=== PATIENT | female | born 1935 | race African-American/Black ===

== ENCOUNTER 2016-12-07 14:09 | Emergency (ER) | payer MEDICARE, MEDICAID ==
[~2016-12-07] VITALS: Ht 170.2 cm; Wt 86.0 kg
[~2016-12-07 14:09] MED LIST: AMLODIPINE; BUSPIRONE; DIOVAN; FAMOTIDINE; OYSCO; [UNRECOGNIZED DRUG - OTHER]
[2016-12-07 14:18] VITALS: BP 107/60
== END 2016-12-07 15:47 | disposition home or self-care (01) ==
LOC: ER 14:48
DX: B02.9 Zoster without complications (principal)
CPT/HCPCS: 99283

== ENCOUNTER 2017-12-29 02:09 | Emergency (ER) | payer MEDICARE, MEDICAID ==
[~2017-12-29] VITALS: Ht 172.7 cm; Wt 89.0 kg
[2017-12-29] MEDS ORDERED: ONDANSETRON HCL 4MG/2ML INJ IV STA (02:41)
[2017-12-29] MEDS ORDERED: SODIUM CHLORIDE 0.9% 1,000 ML IV ONE (02:41)
[2017-12-29] MEDS ORDERED: MORPHINE SULFATE 4 MG/ML CPJ (NOT FOR IM USE) IV STA (02:41)
[2017-12-29 03:10] LABS: CHLORIDE 106 mEq/L (98-107)
[2017-12-29 03:11] LABS: PROTHROMBIN TIME 9.8 sec (9.1-11.1)
[2017-12-29 03:15] LABS: BASOPHILS % 0.8 % (0.0-2.0); EOSINOPHILS % 3.6 % (0.0-5.0); HEMATOCRIT. 40.1 % (36.0-48.0); HEMOGLOBIN. 13.2 g/dL (12.0-16.0); LYMPHOCYTES % 45.6 % (20.0-50.0); MEAN CORPUSCULAR HEMOGLOBIN 30.9 pg (28.0-32.0); MEAN PLATELET VOLUME 7.6 fl (7.4-10.4); MONOCYTES % 9.7 % (2.0-8.0); NEUTROPHILS % 40.3 % (40.0-76.0); PLATELET 216 x1000/uL (130-400); RED BLOOD CELL COUNT 4.27 mill/uL (4.2-5.4); RED CELL DISTRIBUTION WIDTH 13.7 % (11.6-14.6)
[2017-12-29 04:07] LABS: CLARITY URINE CLEAR (CLEAR); COLOR URINE YELLOW (YELLOW); KETONES URINE NEGATIVE (NEGATIVE); LEUKOCYTE ESTERASE URINE NEGATIVE (NEGATIVE); NITRITE URINE NEGATIVE (NEGATIVE); OCCULT BLOOD URINE NEGATIVE (NEGATIVE); PROTEIN URINE NEGATIVE (NEGATIVE); SPECIFIC GRAVITY URINE 1.016 (1.005-1.030); UROBILINOGEN URINE 0.2 E.U./dL (0.2-1.0)
[2017-12-29 06:17] VITALS: BP 138/78
== END 2017-12-29 06:17 | disposition home or self-care (01) ==
LOC: ER 02:09
DX: K80.50 Calculus of bile duct without cholangitis or cholecystitis without obstruction (principal); N28.1 Cyst of kidney, acquired; I10 Essential (primary) hypertension; Z88.5 Allergy status to narcotic agent; Z90.710 Acquired absence of both cervix and uterus; Z98.890 Other specified postprocedural states
CPT/HCPCS: 36415; 74176; 76705; 80053; 81003; 83605; 83690; 85025; 85610; 93005; 96374; 96375; 99285; J2270; J2405; J7030

== ENCOUNTER → 2018-02-18 | Outpatient (CLI) | payer MEDICARE, MEDICAID | END | disposition home or self-care (01) | LOC: EDBD 07:37 → MRI 07:37 | PROVIDERS: ATTEND Neurological Surgery | DX: M48.02 Spinal stenosis, cervical region (principal); M47.812 Spondylosis without myelopathy or radiculopathy, cervical region; G95.89 Other specified diseases of spinal cord | CPT/HCPCS: 72141; 73221 ==

== ENCOUNTER → 2018-02-25 | Outpatient (CLI) | payer MEDICARE, MEDICAID | END | disposition home or self-care (01) | LOC: RAD 10:28 | PROVIDERS: ATTEND Internal Medicine Nephrology | DX: S09.92XA Unspecified injury of nose, initial encounter (principal); X58.XXXA Exposure to other specified factors, initial encounter; Y93.89 Activity, other specified; Y92.89 Other specified places as the place of occurrence of the external cause; Y99.8 Other external cause status | CPT/HCPCS: 70160 ==

== ENCOUNTER 2019-03-07 11:20 | Emergency (ER) | payer MEDICAID, MEDICARE ==
[~2019-03-07] VITALS: Ht 170.2 cm; Wt 90.0 kg
[2019-03-07 15:48] LABS: BASOPHILS % 1.3 % (0.0-2.0); EOSINOPHILS % 2.5 % (0.0-5.0); HEMOGLOBIN. 14.8 g/dL (12.0-16.0); LYMPHOCYTES % 40.8 % (20.0-50.0); MEAN CORPUSCULAR HEMOGLOBIN 30.6 pg (28.0-32.0); MEAN CORPUSCULAR VOLUME 93.1 fL (81.0-99.0); MEAN PLATELET VOLUME 7.6 fl (7.4-10.4); MONOCYTES % 9.1 % (2.0-8.0); NEUTROPHILS % 46.3 % (40.0-76.0); PLATELET 220 x1000/uL (130-400); RED BLOOD CELL COUNT 4.83 mill/uL (4.2-5.4); RED CELL DISTRIBUTION WIDTH 12.9 % (11.6-14.6)
[2019-03-07 15:54] LABS: CHLORIDE 107 mEq/L (98-107); INR 0.9; PROTHROMBIN TIME 9.6 sec (9.6-11.0)
[2019-03-07] MEDS ORDERED: MORPHINE SULFATE 4 MG/ML CPJ (NOT FOR IM USE) IV STA (17:35)
[2019-03-07] MEDS ORDERED: ONDANSETRON HCL 4MG/2ML INJ IV STA (17:35)
[2019-03-07 19:55] LABS: CLARITY URINE CLEAR (CLEAR); COLOR URINE YELLOW (YELLOW); KETONES URINE NEGATIVE (NEGATIVE); LEUKOCYTE ESTERASE URINE NEGATIVE (NEGATIVE); NITRITE URINE NEGATIVE (NEGATIVE); OCCULT BLOOD URINE NEGATIVE (NEGATIVE); PROTEIN URINE NEGATIVE (NEGATIVE); UROBILINOGEN URINE 0.2 E.U./dL (0.2-1.0)
[2019-03-07] MEDS ORDERED: MORPHINE SULFATE 4 MG/ML CPJ (NOT FOR IM USE) IV ONE (21:15)
[2019-03-07] MEDS ORDERED: NA PHOS,M-B/NA PHOS,DI-BA ENEMA 118ML PR ONE (21:15)
[2019-03-07] MEDS ORDERED: IOHEXOL-300 100 ML BOTTLE ONE (23:05)
[2019-03-08 02:30] VITALS: BP 151/63
== END 2019-03-08 03:02 | disposition home or self-care (01) ==
LOC: ER 11:20
DX: K59.00 Constipation, unspecified (principal); R10.32 Left lower quadrant pain; I10 Essential (primary) hypertension; Z90.710 Acquired absence of both cervix and uterus; Z88.5 Allergy status to narcotic agent
CPT/HCPCS: 36415; 74177; 80053; 81003; 83690; 85025; 85610; 96374; 96375; 99284; J2270; J2405; Q9967

== ENCOUNTER → 2019-09-17 | Outpatient (CLI) | payer MEDICARE, MEDICAID | END | disposition home or self-care (01) | LOC: MRI 08:16 | PROVIDERS: ATTEND Neurological Surgery | DX: M47.816 Spondylosis without myelopathy or radiculopathy, lumbar region (principal); M48.061 Spinal stenosis, lumbar region without neurogenic claudication; M47.812 Spondylosis without myelopathy or radiculopathy, cervical region; M48.02 Spinal stenosis, cervical region; M54.2 Cervicalgia; M54.5 Low back pain | CPT/HCPCS: 72141; 72148 ==

== ENCOUNTER → 2019-12-04 | Outpatient (CLI) | payer MEDICARE | END | disposition home or self-care (01) | LOC: LAB 10:07 | PROVIDERS: ATTEND Neurological Surgery | DX: Z01.812 Encounter for preprocedural laboratory examination (principal); Z20.828 Contact with and (suspected) exposure to other viral communicable diseases | CPT/HCPCS: C9803; U0003 ==

== ENCOUNTER 2019-12-07 06:43 | Inpatient (IN) | payer MEDICARE, MEDICAID ==
[~2019-12-07] VITALS: Ht 165.1 cm; Wt 78.2 kg
[2019-12-07] VITALS (49 sets, daily range): BP systolic -6–141; BP diastolic -7–94
[2019-12-07] MEDS ORDERED: THROMBIN (BOVINE) 5000 UNITS/VIAL TOP ONE (07:28)
[2019-12-07] MEDS ORDERED: BACITRACIN 50,000 UNITS/VIAL ONE (07:28)
[2019-12-07] MEDS ORDERED: SODIUM CHLORIDE 0.9% INJ 10ML FLUSH IVF ONE (07:29)
[2019-12-07 08:02] LABS: BASOPHILS % 1.1 % (0.0-2.0); EOSINOPHILS % 1.8 % (0.0-5.0); HEMATOCRIT. 42.1 % (36.0-48.0); HEMOGLOBIN. 13.9 g/dL (12.0-16.0); INR 0.9; LYMPHOCYTES % 31.3 % (20.0-50.0); MEAN CORPUSCULAR HEMOGLOBIN 30.9 pg (28.0-32.0); MEAN CORPUSCULAR VOLUME 93.4 fL (81.0-99.0); MEAN PLATELET VOLUME 8.1 fl (7.4-10.4); MONOCYTES % 8.6 % (2.0-8.0); NEUTROPHILS % 57.2 % (40.0-76.0); PARTIAL THROMBOPLASTIN TIME 28.6 sec (23.4-31.0); PLATELET 224 x1000/uL (130-400); RED CELL DISTRIBUTION WIDTH 13.1 % (11.6-14.6)
[2019-12-07] MEDS ORDERED: LACTATED RINGERS 1,000 ML IV SCH (08:03)
[2019-12-07] MEDS ORDERED: PROPOFOL 200MG/20ML VIAL IV ONE (09:18)
[2019-12-07] MEDS ORDERED: NEOSTIGMINE METHYLSULFATE 1MG/ML 10 ML VIAL ONE (09:18)
[2019-12-07] MEDS ORDERED: EPHEDRINE SULFATE 50MG/ML VIAL ONE (09:18)
[2019-12-07] MEDS ORDERED: CEFAZOLIN SODIUM 1000MG/VIAL ONE (09:18)
[2019-12-07] MEDS ORDERED: FENTANYL CITRATE/PF 50MCG/ML 2ML VIAL ONE ×2 (09:18→10:17)
[2019-12-07] MEDS ORDERED: SUCCINYLCHOLINE CHLORIDE 200MG/10ML IV ONE (09:18)
[2019-12-07] MEDS ORDERED: MIDAZOLAM HCL 2 MG/2 ML VIAL ONE (09:18)
[2019-12-07] MEDS ORDERED: GLYCOPYRROLATE 0.2 MG/ML 2ML VIAL ONE (09:18)
[2019-12-07] MEDS ORDERED: ROCURONIUM BROMIDE 10MG/ML VIAL 5ML IV ONE ×2 (09:18→09:53)
[2019-12-07] MEDS ORDERED: SODIUM CHLORIDE 0.9% 10ML VIAL ONE (09:18)
[2019-12-07] MEDS ORDERED: LIDOCAINE HCL/PF 1% 10 MG/ML 5ML VIAL ONE (09:18)
[2019-12-07] MEDS ORDERED: ONDANSETRON HCL 4MG/2ML INJ ONE (09:19)
[2019-12-07] MEDS ORDERED: DEXAMETHASONE 4MG/ML 1ML VIAL ONE (09:19)
[2019-12-07] MEDS ORDERED: METOCLOPRAMIDE HCL 10MG/2ML VIAL ONE (09:19)
[2019-12-07] MEDS ORDERED: PHENYLEPHRINE HCL 10 MG/ML 1ML (IV VIAL) IV ONE (09:19)
[2019-12-07] MEDS ORDERED: ETOMIDATE 2MG/ML 10ML VIAL IV ONE (09:26)
[2019-12-07 11:03] LABS: CLARITY URINE CLEAR (CLEAR); COLOR URINE YELLOW (YELLOW); KETONES URINE NEGATIVE (NEGATIVE); LEUKOCYTE ESTERASE URINE TRACE (NEGATIVE); NITRITE URINE NEGATIVE (NEGATIVE); OCCULT BLOOD URINE NEGATIVE (NEGATIVE); PH URINE 5.5 (4.5-8.0); PROTEIN URINE NEGATIVE (NEGATIVE); SPECIFIC GRAVITY URINE 1.021 (1.005-1.030); UROBILINOGEN URINE 0.2 E.U./dL (0.2-1.0)
[2019-12-07] MEDS ORDERED: LABETALOL HCL 5MG/ML VIAL 20ML IV ONE (11:33)
[2019-12-07] MEDS: DEXT 5%/LACTATED RINGERS 1,000 ML IV SCH ×2 (12:39→22:30)
[2019-12-07] MEDS: DEXAMETHASONE 4MG/ML 1ML VIAL IV SCH ×2 (12:39→18:31)
[2019-12-07] MEDS: MORPHINE SULFATE 4 MG/ML CPJ (NOT FOR IM USE) IV PRN (12:54)
[2019-12-07] MEDS ORDERED: NALOXONE INJ IV PRN (13:15)
[2019-12-07] MEDS ORDERED: ONDANSETRON INJ IV PRN (13:15)
[2019-12-07] MEDS ORDERED: DIPHENHYDRAMINE INJ IV PRN (13:15)
[2019-12-07] MEDS: CEFAZOLIN 1000MG PREMIX 50 ML IV SCH ×2 (13:29→22:55)
[2019-12-07] MEDS: NICARDIPINE 100 MG in SODIUM CHLORIDE 0.9% 60 ML IV PRN (13:29)
[2019-12-07 13:44] LABS: BG BASE EXCESS -1.6 mmol/L (-2.0-2.0); BG CARBOXYHEMOGLOBIN 0.4 % (0.5-1.5); BG DEOXYHEMOGLOBIN 3.2 % (0.0-5.0); BG FRACTION INSPIRED OXYGEN 35; BG HCO3 ACT 24.2 mmol/L (22.0-26.0); BG METHEMOGLOBIN 0.2 % (0.0-1.5); BG OXYGEN SATURATION 96.8 % (92.0-98.5); BG OXYHEMOGLOBIN 96.2 % (94.0-97.0); BG PCO2 44.8 mmHg (35.0-45.0); BG PO2 94.2 mmHg (75.0-100.0); BG SAMPLE SITE ALINE; BG TOTAL HEMOGLOBIN 13.4 g/dL (12.0-18.0); BG VENT MODE COOL AEROSOL
[2019-12-07] MEDS ORDERED: CEFAZOLIN SODIUM 1000MG/VIAL IV SCH (14:00)
[2019-12-07] MEDS ORDERED: MORPHINE PCA 50MG/50ML IV PRN (14:30)
[2019-12-08] VITALS (87 sets, daily range): BP systolic 0–141; BP diastolic 0–104
[2019-12-08] MEDS: DEXAMETHASONE 4MG/ML 1ML VIAL IV SCH ×4 (00:13→17:17)
[2019-12-08] MEDS: NICARDIPINE 100 MG in SODIUM CHLORIDE 0.9% 60 ML IV PRN (00:25)
[2019-12-08] MEDS: CEFAZOLIN 1000MG PREMIX 50 ML IV SCH ×2 (05:16→13:59)
[2019-12-08] MEDS ORDERED: MORPHINE SULFATE 2 MG/ML CPJ (NOT FOR IM USE) IV SCH (08:00)
[2019-12-08] MEDS: DEXT 5%/LACTATED RINGERS 1,000 ML IV SCH ×2 (09:02→17:17)
[2019-12-09] MEDS: CEFAZOLIN 1000MG PREMIX 50 ML IV SCH ×3 (02:13→16:28)
[2019-12-09] MEDS: DEXT 5%/LACTATED RINGERS 1,000 ML IV SCH (05:56)
[2019-12-09] MEDS ORDERED: LORAZEPAM 2MG/ML CPJ IV PRN (07:00)
[2019-12-09 08:00] VITALS: BP 128/76
[2019-12-09 10:33] LABS: HEMATOCRIT. 39.1 % (36.0-48.0); HEMOGLOBIN. 12.9 g/dL (12.0-16.0); MEAN CORPUSCULAR HEMOGLOBIN 30.7 pg (28.0-32.0); MEAN CORPUSCULAR VOLUME 92.9 fL (81.0-99.0); MEAN PLATELET VOLUME 7.7 fl (7.4-10.4); PLATELET 217 x1000/uL (130-400); RED CELL DISTRIBUTION WIDTH 13.5 % (11.6-14.6)
[2019-12-09 12:00] VITALS: BP 134/78
[2019-12-09 16:00] VITALS: BP 140/72
[2019-12-09 17:11] LABS: PLATELET ESTIMATE NORMAL
[2019-12-09] MEDS: LORAZEPAM 2MG/ML CPJ IV PRN (20:20)
[2019-12-10] VITALS: BP 150/84
[2019-12-10] MEDS: DEXT 5%/LACTATED RINGERS 1,000 ML IV SCH ×2 (00:12→19:57)
[2019-12-10] MEDS: MORPHINE SULFATE 4 MG/ML CPJ (NOT FOR IM USE) IV PRN (01:54)
[2019-12-10 04:00] VITALS: BP 153/86
[2019-12-10] MEDS: LORAZEPAM 2MG/ML CPJ IV PRN (05:23)
[2019-12-10 08:00] VITALS: BP 156/84
[2019-12-10 12:00] VITALS: BP 156/74
[2019-12-10] MEDS ORDERED: HYDROCODONE/ACETAMINOPHEN 5/325MG TABLET PO PRN (14:00)
[2019-12-10] MEDS: AMLODIPINE 10MG TABLET PO SCH (14:04)
[2019-12-10 16:00] VITALS: BP 134/66
[2019-12-10] MEDS: TRAMADOL 50MG TABLET PO PRN (19:56)
[2019-12-11 01:43] VITALS: BP 113/64
[2019-12-11] MEDS: DEXT 5%/LACTATED RINGERS 1,000 ML IV SCH ×2 (05:25→22:06)
[2019-12-11] MEDS: LORAZEPAM 2MG/ML CPJ IV PRN (05:25)
[2019-12-11] MEDS: TRAMADOL 50MG TABLET PO PRN ×2 (06:14→09:07)
[2019-12-11 06:17] VITALS: BP 126/54
[2019-12-11 08:00] VITALS: BP 154/82
[2019-12-11] MEDS: AMLODIPINE 10MG TABLET PO SCH (09:08)
[2019-12-11] MEDS ORDERED: HYDROCODONE/ACETAMINOPHEN 5/325MG TABLET PO PRN (11:45)
[2019-12-11] MEDS: MORPHINE SULFATE 4 MG/ML CPJ (NOT FOR IM USE) IV PRN (13:20)
[2019-12-11] MEDS ORDERED: DOCU250C14 MT (15:51)
[2019-12-11] MEDS ORDERED: HYDR-4001 PO (15:51)
[2019-12-11] MEDS ORDERED: BISACODYL 10MG SUPP PR PRN (17:00)
[2019-12-11] MEDS: DOCUSATE SODIUM 100MG CAPSULE PO SCH (17:27)
[2019-12-11] MEDS: LACTULOSE 20G/30ML UDC PO SCH ×2 (17:28→22:05)
[2019-12-11] MEDS: POLYETHYLENE GLYCOL 3350 (17GM) 1 DOSE PACK PO SCH (20:30)
[2019-12-11 20:55] VITALS: BP 116/68
[2019-12-12 00:14] VITALS: BP 140/75
[2019-12-12 04:17] VITALS: BP 147/78
[2019-12-12 08:00] VITALS: BP 122/74
[2019-12-12] MEDS: AMLODIPINE 10MG TABLET PO SCH (08:35)
[2019-12-12] MEDS: DOCUSATE SODIUM 100MG CAPSULE PO SCH ×2 (08:36→17:18)
[2019-12-12 12:00] VITALS: BP 116/54
[2019-12-12 16:00] VITALS: BP 132/55
[2019-12-12] MEDS: LORAZEPAM 2MG/ML CPJ IV PRN (18:23)
[2019-12-12 20:48] VITALS: BP 105/45
[2019-12-12] MEDS: POLYETHYLENE GLYCOL 3350 (17GM) 1 DOSE PACK PO SCH (20:54)
== END 2019-12-12 21:30 | DRG 471 ==
LOC: OR 06:43 → MICUNO 06:44 → 6EST 12-08 21:45
PROVIDERS: ADMIT Neurological Surgery; ATTEND Neurological Surgery
PROC: 0RG2071 Fusion of 2 or more Cervical Vertebral Joints with Autologous Tissue Substitute, Posterior Approach, Posterior Column, Open Approach (ICD-10-PCS; principal; 2019-12-07)
PROC: 00NW0ZZ Release Cervical Spinal Cord, Open Approach (ICD-10-PCS; 2019-12-07)
PROC: 01N10ZZ Release Cervical Nerve, Open Approach (ICD-10-PCS; 2019-12-07)
PROC: 4A11X4G Monitoring of Peripheral Nervous Electrical Activity, Intraoperative, External Approach (ICD-10-PCS; 2019-12-07)
DX: M48.02 Spinal stenosis, cervical region (principal); G82.50 Quadriplegia, unspecified; G93.41 Metabolic encephalopathy; E46 Unspecified protein-calorie malnutrition; N17.9 Acute kidney failure, unspecified; M47.12 Other spondylosis with myelopathy, cervical region; M47.22 Other spondylosis with radiculopathy, cervical region; E87.8 Other disorders of electrolyte and fluid balance, not elsewhere classified; M19.90 Unspecified osteoarthritis, unspecified site; E78.5 Hyperlipidemia, unspecified; I12.9 Hypertensive chronic kidney disease with stage 1 through stage 4 chronic kidney disease, or unspecified chronic kidney disease; N18.9 Chronic kidney disease, unspecified; J44.9 Chronic obstructive pulmonary disease, unspecified; K21.9 Gastro-esophageal reflux disease without esophagitis; D72.829 Elevated white blood cell count, unspecified; R26.9 Unspecified abnormalities of gait and mobility; R13.10 Dysphagia, unspecified; Z82.49 Family history of ischemic heart disease and other diseases of the circulatory system; Z87.891 Personal history of nicotine dependence; Z68.28 Body mass index [BMI] 28.0-28.9, adult; Z88.8 Allergy status to other drugs, medicaments and biological substances; Z56.0 Unemployment, unspecified; Z78.1 Physical restraint status
CPT/HCPCS: 36415; 36600; 71045; 72040; 72141; 76000; 80048; 81003; 82040; 82375; 82805; 84134; 85025; 86850; 86900; 92523; 92610; 93005; 95863; 95925; 95926; 95928; 95929; 95940; 97110; 97116; 97162; 97166; 97530; 97535; A6261; C1713; C1893; C9803; J0330; J0690; J1100; J2060; J2250; J2270; J2370; J2405; J2704; J2710; J2765; J3010; J3490; J7050; J7121; L0172; U0003

== ENCOUNTER → 2020-02-16 | Outpatient (CLI) | payer MEDICARE, MEDICAID ==
[~2020-02-16] MED LIST changes: -AMLODIPINE; -BUSPIRONE; -DIOVAN; +DOCU250C14 MT; -FAMOTIDINE; -OYSCO; -[UNRECOGNIZED DRUG - OTHER]
== END | disposition home or self-care (01) ==
LOC: RAD 09:27
PROVIDERS: ATTEND Neurological Surgery
DX: M43.22 Fusion of spine, cervical region (principal)
CPT/HCPCS: 72052

== ENCOUNTER 2020-07-15 09:57 | Emergency (ER) | payer MEDICAID, MEDICARE ==
[~2020-07-15] VITALS: Ht 162.6 cm; Wt 75.0 kg
[2020-07-15] MEDS ORDERED: [UNRECOGNIZED DRUG - CODE] OP (11:18)
[2020-07-15 11:39] VITALS: BP 118/70
== END 2020-07-15 11:40 | disposition home or self-care (01) ==
LOC: ER 09:57
DX: H57.13 Ocular pain, bilateral (principal); E78.00 Pure hypercholesterolemia, unspecified; I10 Essential (primary) hypertension; Z88.9 Allergy status to unspecified drugs, medicaments and biological substances
CPT/HCPCS: 99281; 99283

== ENCOUNTER 2020-10-18 21:02 | Inpatient (IN) | payer MEDICARE, MEDICAID ==
[~2020-10-18] VITALS: Ht 170.2 cm; Wt 78.0 kg
[~2020-10-18 21:02] MED LIST changes: +CEPH500C2 MT; +MAGN296S70 MT; +[UNRECOGNIZED DRUG - CODE] OP
[2020-10-18] MEDS ORDERED: ONDANSETRON HCL 4MG/2ML INJ IV STA (23:56)
[2020-10-18] MEDS ORDERED: SULFACETAMIDE SODIUM 10% OPHTH DROPS 15ML BOTHEYE STA (23:59)
[2020-10-19] MEDS ORDERED: FLUORESCEIN SODIUM 1MG/STRIP BOTHEYE ONE
[2020-10-19] MEDS ORDERED: TETRACAINE 0.5% OPHTH DROPS 4ML BOTHEYE ONE
[2020-10-19] MEDS ORDERED: SODIUM CHLORIDE 0.9% 1,000 ML IV ONE
[2020-10-19] MEDS ORDERED: KETOROLAC 15MG/ML VIAL IV ONE
[2020-10-19 01:32] LABS: BASOPHILS % 0.7 % (0.0-2.0); EOSINOPHILS % 1.2 % (0.0-5.0); HEMATOCRIT. 44.9 % (36.0-48.0); HEMOGLOBIN. 15.1 g/dL (12.0-16.0); LYMPHOCYTES % 32.9 % (20.0-50.0); MEAN CORPUSCULAR HEMOGLOBIN 30.7 pg (28.0-32.0); MEAN CORPUSCULAR VOLUME 91.2 fL (81.0-99.0); MEAN PLATELET VOLUME 7.8 fl (7.4-10.4); MONOCYTES % 11.1 % (2.0-8.0); NEUTROPHILS % 54.1 % (40.0-76.0); PLATELET 207 x1000/uL (130-400); RED BLOOD CELL COUNT 4.92 mill/uL (4.2-5.4); RED CELL DISTRIBUTION WIDTH 13.2 % (11.6-14.6)
[2020-10-19 01:36] LABS: CLARITY URINE CLEAR (CLEAR); COLOR URINE YELLOW (YELLOW); KETONES URINE TRACE (NEGATIVE); LEUKOCYTE ESTERASE URINE 3+ (NEGATIVE); NITRITE URINE NEGATIVE (NEGATIVE); OCCULT BLOOD URINE TRACE (NEGATIVE); PROTEIN URINE NEGATIVE (NEGATIVE); SPECIFIC GRAVITY URINE 1.012 (1.005-1.030); UROBILINOGEN URINE 0.2 E.U./dL (0.2-1.0)
[2020-10-19 01:48] LABS: CHLORIDE 105 mEq/L (98-107)
[2020-10-19] MEDS ORDERED: CEFTRIAXONE 1 G PREMIX 50 ML IV ONE (02:15)
[2020-10-19 02:55] LABS: PARTIAL THROMBOPLASTIN TIME 26.9 sec (23.4-31.0); PROTHROMBIN TIME 10.8 sec (9.6-11.0)
[2020-10-19] MEDS ORDERED: CEFTRIAXONE 1 G PREMIX 50 ML IV SCH (10:00)
[2020-10-19] MEDS ORDERED: ACETAMINOPHEN 325MG TABLET PO PRN (10:00)
[2020-10-19] MEDS ORDERED: ONDANSETRON HCL 4MG/2ML INJ IV PRN (10:00)
[2020-10-19] MEDS: POLYVINYL ALCOHOL OPHTH DROPS 15ML EACHEYE SCH ×2 (12:58→19:37)
[2020-10-19] MEDS: TOBRAMYCIN/DEXAMETH 0.1/0.3% OPHTH SUSP 2.5ML BOTHEYE SCH ×2 (16:07→20:54)
[2020-10-19] MEDS ORDERED: MAGNESIUM HYDROXIDE 400MG/5ML 30ML UDC PO PRN (16:45)
[2020-10-19] MEDS: DOCUSATE SODIUM 100MG CAPSULE PO SCH (20:53)
[2020-10-19] MEDS ORDERED: CEFTRIAXONE 1,000 MG in DEXTROSE 5% WATER 50 ML IV SCH (21:00)
[2020-10-19 22:45] VITALS: BP 146/85
[2020-10-19 23:00] VITALS: BP 146/85
[2020-10-20] VITALS: BP_SYST 122; BP_SYST 146; BP_DIAS 78; BP_DIAS 85
[2020-10-20] MEDS: POLYVINYL ALCOHOL OPHTH DROPS 15ML EACHEYE SCH ×3 (00:51→11:00)
[2020-10-20] MEDS: TOBRAMYCIN/DEXAMETH 0.1/0.3% OPHTH SUSP 2.5ML BOTHEYE SCH ×4 (00:52→11:00)
[2020-10-20 04:00] VITALS: BP 148/78
[2020-10-20 07:50] VITALS: BP 135/72
[2020-10-20] MEDS: DOCUSATE SODIUM 100MG CAPSULE PO SCH (08:14)
[2020-10-20 11:50] VITALS: BP 131/67
[2020-10-20] MEDS ORDERED: MOM PO (14:04)
[2020-10-20] MEDS ORDERED: DOCU250C69 MT (14:04)
[2020-10-20 14:51] VITALS: BP 131/67
== END 2020-10-20 16:55 | disposition home or self-care (01) | DRG 689 ==
LOC: ER 21:02 → MICUSO 10-19 02:32 → 7EST 10-19 20:33
PROVIDERS: ADMIT Internal Medicine; ATTEND Internal Medicine
DX: N39.0 Urinary tract infection, site not specified (principal); N17.0 Acute kidney failure with tubular necrosis; I10 Essential (primary) hypertension; J44.9 Chronic obstructive pulmonary disease, unspecified; K59.00 Constipation, unspecified; Z20.822 Contact with and (suspected) exposure to COVID-19; M19.90 Unspecified osteoarthritis, unspecified site; Z90.710 Acquired absence of both cervix and uterus; Z88.8 Allergy status to other drugs, medicaments and biological substances; Z79.899 Other long term (current) drug therapy
CPT/HCPCS: 36415; 71045; 74176; 80053; 81003; 83880; 84484; 85025; 87426; 93005; 99285; J0696; J1885; J2405; J7030; J7060

== ENCOUNTER 2020-11-13 08:57 | Emergency (ER) | payer MEDICARE, MEDICAID ==
[~2020-11-13] VITALS: Ht 170.2 cm; Wt 76.0 kg
[~2020-11-13 08:57] MED LIST changes: -CEPH500C2 MT; +DOCU250C69 MT; +MOM PO
[2020-11-13 10:30] LABS: BASOPHILS % 0.7 % (0.0-2.0); EOSINOPHILS % 1.9 % (0.0-5.0); HEMOGLOBIN. 12.7 g/dL (12.0-16.0); LYMPHOCYTES % 31.4 % (20.0-50.0); MEAN CORPUSCULAR HEMOGLOBIN 30.6 pg (28.0-32.0); MEAN PLATELET VOLUME 8.1 fl (7.4-10.4); MONOCYTES % 11.8 % (2.0-8.0); NEUTROPHILS % 54.2 % (40.0-76.0); PLATELET 219 x1000/uL (130-400); RED BLOOD CELL COUNT 4.13 mill/uL (4.2-5.4); RED CELL DISTRIBUTION WIDTH 13.1 % (11.6-14.6)
[2020-11-13 10:36] LABS: CHLORIDE 109 mEq/L (98-107)
[2020-11-13] MEDS ORDERED: GUAIFENESIN 600MG ER TABLET PO STA (10:42)
[2020-11-13 11:34] LABS: CLARITY URINE CLEAR (CLEAR); COLOR URINE YELLOW (YELLOW); KETONES URINE NEGATIVE (NEGATIVE); LEUKOCYTE ESTERASE URINE 2+ (NEGATIVE); NITRITE URINE NEGATIVE (NEGATIVE); OCCULT BLOOD URINE NEGATIVE (NEGATIVE); PROTEIN URINE NEGATIVE (NEGATIVE)
[2020-11-13] MEDS ORDERED: CEFTRIAXONE 1 G PREMIX 50 ML IV ONE (12:15)
[2020-11-13 14:00] VITALS: BP 148/81
[2020-11-13] MEDS ORDERED: CEPH250C2 MT (14:00)
[2020-11-13] MEDS ORDERED: GUAI600T26 MT (14:00)
== END 2020-11-13 14:17 | disposition home or self-care (01) ==
LOC: ER 08:57
DX: R05.9 Cough, unspecified (principal); N39.0 Urinary tract infection, site not specified; I10 Essential (primary) hypertension; Z79.899 Other long term (current) drug therapy
CPT/HCPCS: 36415; 71045; 80053; 81003; 83605; 83880; 84145; 84484; 85025; 87040; 93005; 96365; 99285; J0696

== ENCOUNTER 2020-12-24 15:38 | Emergency (ER) | payer MEDICARE ==
[~2020-12-24] VITALS: Ht 170.2 cm; Wt 73.0 kg
[~2020-12-24 15:38] MED LIST changes: +CEPH250C2 MT; +GUAI600T26 MT
[2020-12-24 16:04] VITALS: BP 103/62
[2020-12-24 21:38] LABS: BASOPHILS % 0.5 % (0.0-2.0); EOSINOPHILS % 1.5 % (0.0-5.0); HEMATOCRIT. 40.8 % (36.0-48.0); HEMOGLOBIN. 13.4 g/dL (12.0-16.0); LYMPHOCYTES % 34.2 % (20.0-50.0); MEAN CORPUSCULAR HEMOGLOBIN 29.9 pg (28.0-32.0); MEAN CORPUSCULAR VOLUME 91.4 fL (81.0-99.0); MEAN PLATELET VOLUME 7.4 fl (7.4-10.4); MONOCYTES % 11.9 % (2.0-8.0); NEUTROPHILS % 51.9 % (40.0-76.0); PLATELET 236 x1000/uL (130-400); RED BLOOD CELL COUNT 4.46 mill/uL (4.2-5.4); RED CELL DISTRIBUTION WIDTH 13.2 % (11.6-14.6)
[2020-12-24 21:46] LABS: CHLORIDE 107 mEq/L (98-107)
[2020-12-24] MEDS ORDERED: ACETAMINOPHEN 325MG TABLET PO ONE (22:45)
[2020-12-24 23:58] LABS: CLARITY URINE CLEAR (CLEAR); COLOR URINE YELLOW (YELLOW); KETONES URINE NEGATIVE (NEGATIVE); LEUKOCYTE ESTERASE URINE 1+ (NEGATIVE); NITRITE URINE NEGATIVE (NEGATIVE); OCCULT BLOOD URINE NEGATIVE (NEGATIVE); PROTEIN URINE NEGATIVE (NEGATIVE); SPECIFIC GRAVITY URINE 1.018 (1.005-1.030); UROBILINOGEN URINE 0.2 E.U./dL (0.2-1.0)
== END 2020-12-24 23:20 | disposition home or self-care (01) ==
LOC: ER 15:38
DX: K59.00 Constipation, unspecified (principal); E86.0 Dehydration; I10 Essential (primary) hypertension; Z98.1 Arthrodesis status; Z90.710 Acquired absence of both cervix and uterus; Z88.5 Allergy status to narcotic agent
CPT/HCPCS: 36415; 74018; 80053; 81003; 85025; 99285

== ENCOUNTER → 2021-01-04 | Outpatient (CLI) | payer MEDICARE, MEDICAID | END | disposition home or self-care (01) | LOC: CARD 08:47 | PROVIDERS: ATTEND Internal Medicine | DX: I08.3 Combined rheumatic disorders of mitral, aortic and tricuspid valves (principal); R06.02 Shortness of breath | CPT/HCPCS: 93306 ==

== ENCOUNTER 2021-03-05 20:57 | Emergency (ER) | payer MEDICAID, MEDICARE ==
[~2021-03-05] VITALS: Ht 167.6 cm; Wt 75.0 kg
[~2021-03-05 20:57] MED LIST changes: +ASPI-1406 PO; +ATOR20TA65 PO
[2021-03-05] MEDS ORDERED: DICYCLOMINE 10 MG/5 ML ORAL SYR PO STA (21:52)
[2021-03-05] MEDS ORDERED: IBUPROFEN 600MG TABLET PO ONE (22:30)
[2021-03-05 23:16] LABS: EOSINOPHILS % 1.8 % (0.0-5.0); HEMOGLOBIN. 13.2 g/dL (12.0-16.0); LYMPHOCYTES % 24.8 % (20.0-50.0); MEAN CORPUSCULAR HEMOGLOBIN 29.7 pg (28.0-32.0); MEAN CORPUSCULAR VOLUME 92.3 fL (81.0-99.0); MEAN PLATELET VOLUME 7.5 fl (7.4-10.4); MONOCYTES % 11.8 % (2.0-8.0); NEUTROPHILS % 60.6 % (40.0-76.0); PLATELET 239 x1000/uL (130-400); RED BLOOD CELL COUNT 4.44 mill/uL (4.2-5.4); RED CELL DISTRIBUTION WIDTH 13.1 % (11.6-14.6)
[2021-03-05 23:20] LABS: CHLORIDE 109 mEq/L (98-107)
[2021-03-06 01:29] LABS: CLARITY URINE CLEAR (CLEAR); COLOR URINE YELLOW (YELLOW); KETONES URINE TRACE (NEGATIVE); LEUKOCYTE ESTERASE URINE TRACE (NEGATIVE); NITRITE URINE NEGATIVE (NEGATIVE); OCCULT BLOOD URINE NEGATIVE (NEGATIVE); PROTEIN URINE NEGATIVE (NEGATIVE); UROBILINOGEN URINE 0.2 E.U./dL (0.2-1.0)
[2021-03-06] MEDS ORDERED: METF-873 MT (01:57)
[2021-03-06] MEDS ORDERED: CEPH500C2 MT (01:57)
[2021-03-06] MEDS ORDERED: CEPHALEXIN 250MG CAPSULE PO ONE (02:00)
[2021-03-06 02:15] VITALS: BP 136/59
== END 2021-03-06 02:27 | disposition home or self-care (01) ==
LOC: ER 20:57
DX: N39.0 Urinary tract infection, site not specified (principal); K59.00 Constipation, unspecified; M16.11 Unilateral primary osteoarthritis, right hip; M17.5 Other unilateral secondary osteoarthritis of knee; M11.261 Other chondrocalcinosis, right knee
CPT/HCPCS: 36415; 72170; 73560; 74018; 80053; 81003; 85025; 93005; 99285

== ENCOUNTER 2021-04-05 17:05 | Inpatient (IN) | payer MEDICARE, MEDICAID ==
[~2021-04-05] VITALS: Ht 170.2 cm; Wt 72.6 kg
[~2021-04-05 17:05] MED LIST changes: +CEPH500C2 MT
[2021-04-05] MEDS ORDERED: MORPHINE SULFATE 2 MG/ML CPJ (NOT FOR IM USE) IV ONE ×2 (18:30→21:00)
[2021-04-05 18:35] LABS: BASOPHILS % 0.6 % (0.0-2.0); EOSINOPHILS % 0.1 % (0.0-5.0); HEMOGLOBIN. 14.3 g/dL (12.0-16.0); LYMPHOCYTES % 11.1 % (20.0-50.0); MEAN CORPUSCULAR HEMOGLOBIN 29.9 pg (28.0-32.0); MEAN CORPUSCULAR VOLUME 91.6 fL (81.0-99.0); MEAN PLATELET VOLUME 7.6 fl (7.4-10.4); MONOCYTES % 8.2 % (2.0-8.0); PLATELET 240 x1000/uL (130-400); RED CELL DISTRIBUTION WIDTH 13.2 % (11.6-14.6)
[2021-04-05 18:39] LABS: CHLORIDE 105 mEq/L (98-107)
[2021-04-05] MEDS ORDERED: SODIUM CHLORIDE 0.9% 500 ML IV ONE (19:30)
[2021-04-05 20:28] LABS: CLARITY URINE CLOUDY (CLEAR); COLOR URINE YELLOW (YELLOW); KETONES URINE NEGATIVE (NEGATIVE); LEUKOCYTE ESTERASE URINE 3+ (NEGATIVE); NITRITE URINE NEGATIVE (NEGATIVE); OCCULT BLOOD URINE 3+ (NEGATIVE); PROTEIN URINE TRACE (NEGATIVE); SPECIFIC GRAVITY URINE 1.013 (1.005-1.030); UROBILINOGEN URINE 0.2 E.U./dL (0.2-1.0)
[2021-04-05] MEDS ORDERED: ACETAMINOPHEN 325MG TABLET PO ONE (21:00)
[2021-04-05] MEDS ORDERED: BISACODYL 10MG SUPP PR ONE (21:00)
[2021-04-05] MEDS ORDERED: NITROGLYCERIN 0.4MG TABLET SL SL PRN (22:00)
[2021-04-05] MEDS ORDERED: CLONIDINE 0.1MG TABLET PO PRN (22:00)
[2021-04-05] MEDS ORDERED: ZOLPIDEM TARTRATE 5MG TABLET PO PRN (22:00)
[2021-04-05] MEDS ORDERED: NA PHOS,M-B/NA PHOS,DI-BA ENEMA 118ML PR NR (22:00)
[2021-04-05] MEDS ORDERED: ACETAMINOPHEN 325MG TABLET PO PRN ×2 (22:00)
[2021-04-05] MEDS ORDERED: ONDANSETRON HCL 4MG/2ML INJ IV PRN (22:00)
[2021-04-05] MEDS ORDERED: IPRATROPIUM/ALBUTEROL 0.5-3(2.5)MG/3ML NEB NEB PRN (22:00)
[2021-04-05] MEDS ORDERED: DOCUSATE SODIUM 100MG CAPSULE PO PRN (22:00)
[2021-04-05] MEDS ORDERED: MAGNESIUM/ALUMINUM HYDROXIDE/SIMETHICONE 30ML UDC PO PRN (22:00)
[2021-04-05] MEDS ORDERED: GUAIFENESIN 200MG/10ML SUGAR FREE UDC PO PRN (22:00)
[2021-04-05] MEDS ORDERED: PIPERACILLIN/TAZ 3.375G PREMIX 50 ML IV NR (22:19)
[2021-04-05 22:45] LABS: FOLIC ACID (FOLATE) SERUM 9.2 ng/mL (>5.38)
[2021-04-05] MEDS: KETOROLAC 15MG/ML VIAL IV PRN (23:22)
[2021-04-06 05:35] VITALS: BP 117/52
[2021-04-06] MEDS ORDERED: PIPERACILLIN/TAZOBACTAM 3.375 G in DEXTROSE 5% WATER 50 ML IV SCH (06:00)
[2021-04-06 08:00] VITALS: BP 123/58
[2021-04-06] MEDS: ENOXAPARIN 40MG/0.4ML SYR SUBCUT SCH (08:24)
[2021-04-06] MEDS: PANTOPRAZOLE SODIUM 40 MG/VIAL IV SCH (08:24)
[2021-04-06] MEDS: KETOROLAC 15MG/ML VIAL IV PRN ×2 (08:30→15:28)
[2021-04-06] MEDS: PIPERACILLIN/TAZOBACTAM 3.375 G in DEXTROSE 5% WATER 50 ML IV SCH ×3 (10:01→20:49)
[2021-04-06 12:00] VITALS: BP 114/56
[2021-04-06] MEDS: TRAMADOL 50MG TABLET PO PRN (12:37)
[2021-04-06 13:17] LABS: BASOPHILS % 0.3 % (0.0-2.0); EOSINOPHILS % 0.3 % (0.0-5.0); HEMATOCRIT. 36.2 % (36.0-48.0); MEAN CORPUSCULAR VOLUME 90.2 fL (81.0-99.0); MEAN PLATELET VOLUME 7.7 fl (7.4-10.4); MONOCYTES % 10.4 % (2.0-8.0); PLATELET 195 x1000/uL (130-400); RED BLOOD CELL COUNT 4.01 mill/uL (4.2-5.4); RED CELL DISTRIBUTION WIDTH 13.1 % (11.6-14.6)
[2021-04-06 13:24] LABS: CHLORIDE 109 mEq/L (98-107)
[2021-04-06 13:30] LABS: PHOSPHORUS 3.2 mg/dL (2.5-4.9)
[2021-04-06] MEDS ORDERED: ASPI-986 MT (15:54)
[2021-04-06] MEDS ORDERED: DOCU-286 MT (15:54)
[2021-04-06 16:00] VITALS: BP 110/59
[2021-04-06 16:05] VITALS: BP 123/58
[2021-04-06 20:00] VITALS: BP 92/50
[2021-04-07] VITALS: BP_SYST 115; BP_SYST 138; BP_DIAS 57; BP_DIAS 61
[2021-04-07 04:00] VITALS: BP 138/57
[2021-04-07] MEDS: PIPERACILLIN/TAZOBACTAM 3.375 G in DEXTROSE 5% WATER 50 ML IV SCH ×2 (05:22→13:58)
[2021-04-07] MEDS: TRAMADOL 50MG TABLET PO PRN ×2 (05:23→13:58)
[2021-04-07 08:00] VITALS: BP 111/54
[2021-04-07] MEDS: PANTOPRAZOLE SODIUM 40 MG/VIAL IV SCH (08:40)
[2021-04-07] MEDS: ENOXAPARIN 40MG/0.4ML SYR SUBCUT SCH (08:40)
[2021-04-07] MEDS: KETOROLAC 15MG/ML VIAL IV PRN ×2 (08:41→16:36)
[2021-04-07 12:00] VITALS: BP 98/58
[2021-04-07] MEDS: METHYL SALICYLATE/MENTHOL CREAM 85GM TOP SCH ×2 (13:00→16:29)
[2021-04-07] MEDS: LIDOCAINE 5% PATCH TOP SCH (13:59)
[2021-04-07 16:00] VITALS: BP 155/62
[2021-04-07] MEDS: PHENYLEPH/PRAMOXIN/GLYCR/PET RECTAL CREAM 26GM PR SCH (16:30)
[2021-04-07] MEDS ORDERED: PHENYLEPHRINE/SHK LV/MO/PET RECTAL OINTMENT 57GM PR SCH (17:00)
[2021-04-07] MEDS ORDERED: NALOXONE HCL 0.4MG/ML VIAL IV PRN (18:00)
[2021-04-07 20:00] VITALS: BP 102/51
[2021-04-08] VITALS: BP 120/57
[2021-04-08 04:00] VITALS: BP 101/53
[2021-04-08] MEDS: PIPERACILLIN/TAZOBACTAM 3.375 G in DEXTROSE 5% WATER 50 ML IV SCH ×3 (06:27→15:11)
[2021-04-08] MEDS: METHYL SALICYLATE/MENTHOL CREAM 85GM TOP SCH ×2 (06:29→12:22)
[2021-04-08 08:00] VITALS: BP 109/58
[2021-04-08] MEDS: PANTOPRAZOLE SODIUM 40 MG/VIAL IV SCH (08:13)
[2021-04-08] MEDS: PHENYLEPH/PRAMOXIN/GLYCR/PET RECTAL CREAM 26GM PR SCH (08:13)
[2021-04-08] MEDS: LIDOCAINE 5% PATCH TOP SCH (08:15)
[2021-04-08] MEDS: TRAMADOL 50MG TABLET PO PRN ×2 (08:59→15:11)
[2021-04-08] MEDS ORDERED: ENOXAPARIN 30MG/0.3ML SYR SUBCUT SCH (09:00)
[2021-04-08 12:00] VITALS: BP 148/67
[2021-04-08 16:17] VITALS: BP 148/67
[2021-04-09] MEDS ORDERED: AMLO10TA80 PO (02:30)
[2021-04-09] MEDS ORDERED: LINA72CA PO (02:30)
[2021-04-09] MEDS ORDERED: FAMO40TA7 PO (02:30)
[2021-04-09] MEDS ORDERED: IBUP-2028 PO (02:30)
== END 2021-04-08 16:44 | DRG 690 ==
LOC: ER 17:11 → MICUSO 21:46 → SUPCPDRO 21:48 → 6EST 23:24
PROVIDERS: ADMIT Internal Medicine; ATTEND Internal Medicine
DX: N39.0 Urinary tract infection, site not specified (principal); K57.32 Diverticulitis of large intestine without perforation or abscess without bleeding; E87.1 Hypo-osmolality and hyponatremia; E87.5 Hyperkalemia; E88.09 Other disorders of plasma-protein metabolism, not elsewhere classified; I10 Essential (primary) hypertension; Z90.710 Acquired absence of both cervix and uterus; E78.00 Pure hypercholesterolemia, unspecified; E78.5 Hyperlipidemia, unspecified; J44.9 Chronic obstructive pulmonary disease, unspecified; G89.29 Other chronic pain; K59.09 Other constipation; R53.81 Other malaise; M16.9 Osteoarthritis of hip, unspecified; E66.01 Morbid (severe) obesity due to excess calories; M17.10 Unilateral primary osteoarthritis, unspecified knee; Z20.822 Contact with and (suspected) exposure to COVID-19; Z82.0 Family history of epilepsy and other diseases of the nervous system; Z82.49 Family history of ischemic heart disease and other diseases of the circulatory system; Z87.891 Personal history of nicotine dependence; Z98.1 Arthrodesis status; Z88.8 Allergy status to other drugs, medicaments and biological substances; Z79.82 Long term (current) use of aspirin; Z79.899 Other long term (current) drug therapy; Z71.3 Dietary counseling and surveillance; Z68.25 Body mass index [BMI] 25.0-25.9, adult
CPT/HCPCS: 36415; 74176; 80053; 81003; 82607; 82746; 83540; 83550; 83605; 83735; 84100; 84145; 84443; 85025; 87426; 93970; 97162; 97166; 97535; 99285; C9113; J1650; J1885; J2270; J2543; J7040; J7060

== ENCOUNTER 2021-04-08 16:50 | Inpatient (IN) | payer MEDICARE, MEDICAID ==
[~2021-04-08] VITALS: Ht 170.2 cm; Wt 72.3 kg
[~2021-04-08 16:50] MED LIST changes: +ASPI-986 MT; +DOCU-286 MT
[2021-04-08 18:00] VITALS: BP 128/58
[2021-04-08] MEDS ORDERED: CLONIDINE 0.1MG TABLET PO PRN (19:15)
[2021-04-08] MEDS ORDERED: ZOLPIDEM TARTRATE 5MG TABLET PO PRN (19:15)
[2021-04-08] MEDS ORDERED: ACETAMINOPHEN 325MG TABLET PO PRN (19:15)
[2021-04-08] MEDS ORDERED: TRAMADOL 50MG TABLET PO PRN (19:15)
[2021-04-08] MEDS ORDERED: KETOROLAC 15MG/ML VIAL IV PRN (19:15)
[2021-04-08] MEDS ORDERED: MAGNESIUM/ALUMINUM HYDROXIDE/SIMETHICONE 30ML UDC PO PRN (19:15)
[2021-04-08] MEDS ORDERED: GUAIFENESIN 200MG/10ML SUGAR FREE UDC PO PRN (19:15)
[2021-04-08] MEDS ORDERED: NALOXONE HCL 0.4 MG/ML 1ML VIAL IV PRN (19:15)
[2021-04-08] MEDS ORDERED: NITROGLYCERIN 0.4MG TABLET SL SL PRN (19:15)
[2021-04-08] MEDS ORDERED: ONDANSETRON HCL 4MG/2ML INJ IV PRN (19:15)
[2021-04-08] MEDS ORDERED: IPRATROPIUM/ALBUTEROL 0.5-3(2.5)MG/3ML NEB HHN PRN (19:15)
[2021-04-08] MEDS ORDERED: KETOROLAC 30MG/ML VIAL IV PRN (19:45)
[2021-04-08 20:00] VITALS: BP 124/70
[2021-04-08] MEDS: PHENYLEPH/PRAMOXIN/GLYCR/PET RECTAL CREAM 26GM PR SCH (21:12)
[2021-04-08] MEDS: METHYL SALICYLATE/MENTHOL CREAM 85GM TOP SCH (21:12)
[2021-04-08] MEDS: PIPERACILLIN/TAZOBACTAM 3.375 G in DEXTROSE 5% WATER 50 ML IV SCH (21:12)
[2021-04-09] MEDS: METHYL SALICYLATE/MENTHOL CREAM 85GM TOP SCH ×4 (00:25→17:56)
[2021-04-09] MEDS ORDERED: AMLO10TA80 PO (02:30)
[2021-04-09] MEDS ORDERED: IBUP-2028 PO (02:30)
[2021-04-09] MEDS ORDERED: LINA72CA PO (02:30)
[2021-04-09] MEDS ORDERED: FAMO40TA7 PO (02:30)
[2021-04-09] MEDS: PIPERACILLIN/TAZOBACTAM 3.375 G in DEXTROSE 5% WATER 50 ML IV SCH ×3 (05:04→21:04)
[2021-04-09 08:00] VITALS: BP 132/62
[2021-04-09 08:01] LABS: CLARITY URINE CLEAR (CLEAR); COLOR URINE YELLOW (YELLOW); KETONES URINE NEGATIVE (NEGATIVE); LEUKOCYTE ESTERASE URINE NEGATIVE (NEGATIVE); NITRITE URINE NEGATIVE (NEGATIVE); OCCULT BLOOD URINE NEGATIVE (NEGATIVE); PROTEIN URINE NEGATIVE (NEGATIVE); UROBILINOGEN URINE 0.2 E.U./dL (0.2-1.0)
[2021-04-09 08:09] LABS: HEMOGLOBIN. 11.9 g/dL (12.0-16.0); MEAN CORPUSCULAR HEMOGLOBIN 30.2 pg (28.0-32.0); MEAN CORPUSCULAR VOLUME 91.4 fL (81.0-99.0); MEAN PLATELET VOLUME 7.9 fl (7.4-10.4); PLATELET 189 x1000/uL (130-400); RED BLOOD CELL COUNT 3.94 mill/uL (4.2-5.4); RED CELL DISTRIBUTION WIDTH 13.1 % (11.6-14.6)
[2021-04-09 08:48] LABS: CHLORIDE 110 mEq/L (98-107)
[2021-04-09] MEDS ORDERED: PHENYLEPH/PRAMOXIN/GLYCR/PET RECTAL CREAM 26GM PR SCH (09:00)
[2021-04-09] MEDS: PANTOPRAZOLE SODIUM 40 MG/VIAL IV SCH (09:00)
[2021-04-09] MEDS: ENOXAPARIN 30MG/0.3ML SYR SUBCUT SCH (09:43)
[2021-04-09] MEDS: PHENYLEPH/PRAMOXIN/GLYCR/PET RECTAL CREAM 26GM PR SCH ×2 (09:43→17:55)
[2021-04-09] MEDS: LIDOCAINE 5% PATCH TOP SCH (09:43)
[2021-04-09 20:00] VITALS: BP 112/61
[2021-04-09] MEDS: DOCUSATE SODIUM 100MG CAPSULE PO PRN (21:04)
[2021-04-09 23:56] LABS: PLATELET ESTIMATE NORMAL
[2021-04-10] MEDS: METHYL SALICYLATE/MENTHOL CREAM 85GM TOP SCH ×4 (00:49→19:06)
[2021-04-10] MEDS: PIPERACILLIN/TAZOBACTAM 3.375 G in DEXTROSE 5% WATER 50 ML IV SCH (05:07)
[2021-04-10 07:20] LABS: BASOPHILS % 0.8 % (0.0-2.0); EOSINOPHILS % 3.1 % (0.0-5.0); HEMATOCRIT. 40.4 % (36.0-48.0); LYMPHOCYTES % 31.6 % (20.0-50.0); MEAN CORPUSCULAR HEMOGLOBIN 29.5 pg (28.0-32.0); MEAN CORPUSCULAR VOLUME 91.6 fL (81.0-99.0); MEAN PLATELET VOLUME 7.9 fl (7.4-10.4); MONOCYTES % 12.1 % (2.0-8.0); NEUTROPHILS % 52.4 % (40.0-76.0); PLATELET 222 x1000/uL (130-400); RED BLOOD CELL COUNT 4.41 mill/uL (4.2-5.4); RED CELL DISTRIBUTION WIDTH 12.8 % (11.6-14.6)
[2021-04-10 07:37] VITALS: BP 119/50
[2021-04-10 07:42] LABS: FOLIC ACID (FOLATE) SERUM 12.8 ng/mL (>5.38)
[2021-04-10] MEDS: PANTOPRAZOLE SODIUM 40 MG/VIAL IV SCH (09:00)
[2021-04-10] MEDS: ENOXAPARIN 30MG/0.3ML SYR SUBCUT SCH (09:18)
[2021-04-10] MEDS: PHENYLEPH/PRAMOXIN/GLYCR/PET RECTAL CREAM 26GM PR SCH ×2 (09:20→17:33)
[2021-04-10] MEDS: LIDOCAINE 5% PATCH TOP SCH (09:20)
[2021-04-10] MEDS ORDERED: CYANOCOBALAMIN 1000MCG/ML VIAL IM SCH (12:00)
[2021-04-10] MEDS ORDERED: LEVOFLOXACIN 500MG TABLET PO NR (15:00)
[2021-04-10] MEDS: METRONIDAZOLE 500MG TABLET PO SCH ×2 (15:20→21:15)
[2021-04-10] MEDS ORDERED: BISACODYL 10MG SUPP PR SCH (17:00)
[2021-04-10] MEDS: LACTULOSE 20G/30ML UDC PO SCH (19:06)
[2021-04-10 20:00] VITALS: BP 129/89
[2021-04-10] MEDS: HYDROCORTISONE ACETATE 25MG SUPP PR SCH (21:15)
[2021-04-11] MEDS: LACTULOSE 20G/30ML UDC PO SCH
[2021-04-11] MEDS: METHYL SALICYLATE/MENTHOL CREAM 85GM TOP SCH ×4 (01:15→19:15)
[2021-04-11] MEDS: METRONIDAZOLE 500MG TABLET PO SCH ×3 (06:22→21:07)
[2021-04-11] MEDS ORDERED: BISACODYL 10MG SUPP PR SCH (07:00)
[2021-04-11 08:00] VITALS: BP 119/56
[2021-04-11] MEDS: POLYETHYLENE GLYCOL 3350 (17GM) 1 DOSE PACK PO SCH (08:53)
[2021-04-11] MEDS: DOCUSATE SODIUM 100MG CAPSULE PO SCH ×2 (08:53→16:48)
[2021-04-11] MEDS: ENOXAPARIN 30MG/0.3ML SYR SUBCUT SCH (08:56)
[2021-04-11] MEDS: PANTOPRAZOLE SODIUM 40 MG/VIAL IV SCH (08:57)
[2021-04-11] MEDS: PHENYLEPH/PRAMOXIN/GLYCR/PET RECTAL CREAM 26GM PR SCH ×2 (09:00→17:22)
[2021-04-11] MEDS: LIDOCAINE 5% PATCH TOP SCH (09:07)
[2021-04-11] MEDS: HYDROCORTISONE ACETATE 25MG SUPP PR SCH ×2 (09:07→21:07)
[2021-04-11] MEDS: LEVOFLOXACIN 250MG TABLET PO SCH (10:54)
[2021-04-11 19:42] LABS: HEMATOCRIT 36.2 % (36.0-48.0)
[2021-04-11 20:00] VITALS: BP 122/66
[2021-04-12 00:40] LABS: HEMATOCRIT 35.8 % (36.0-48.0); HEMOGLOBIN 11.7 g/dL (12.0-16.0)
[2021-04-12] MEDS: METHYL SALICYLATE/MENTHOL CREAM 85GM TOP SCH ×4 (01:15→19:15)
[2021-04-12] MEDS: METRONIDAZOLE 500MG TABLET PO SCH ×3 (06:15→20:55)
[2021-04-12 07:42] LABS: HEMOGLOBIN. 11.7 g/dL (12.0-16.0); MEAN CORPUSCULAR HEMOGLOBIN 29.6 pg (28.0-32.0); MEAN CORPUSCULAR VOLUME 90.9 fL (81.0-99.0); MEAN PLATELET VOLUME 7.8 fl (7.4-10.4); PLATELET 208 x1000/uL (130-400); RED BLOOD CELL COUNT 3.96 mill/uL (4.2-5.4); RED CELL DISTRIBUTION WIDTH 13.1 % (11.6-14.6)
[2021-04-12 08:00] VITALS: BP 108/58
[2021-04-12 08:13] LABS: CHLORIDE 111 mEq/L (98-107)
[2021-04-12] MEDS: PANTOPRAZOLE SODIUM 40 MG/VIAL IV SCH (09:00)
[2021-04-12] MEDS: HYDROCORTISONE ACETATE 25MG SUPP PR SCH ×2 (09:00→10:10)
[2021-04-12] MEDS: DOCUSATE SODIUM 100MG CAPSULE PO SCH ×2 (10:10→17:51)
[2021-04-12] MEDS: POLYETHYLENE GLYCOL 3350 (17GM) 1 DOSE PACK PO SCH (10:10)
[2021-04-12] MEDS: ENOXAPARIN 30MG/0.3ML SYR SUBCUT SCH (10:11)
[2021-04-12] MEDS: LIDOCAINE 5% PATCH TOP SCH (10:12)
[2021-04-12] MEDS: PHENYLEPH/PRAMOXIN/GLYCR/PET RECTAL CREAM 26GM PR SCH ×2 (10:12→17:51)
[2021-04-12] MEDS: LEVOFLOXACIN 250MG TABLET PO SCH (11:11)
[2021-04-12 13:09] LABS: HEMATOCRIT 36.4 % (36.0-48.0); HEMOGLOBIN 12.2 g/dL (12.0-16.0)
[2021-04-12 13:54] LABS: PLATELET ESTIMATE NORMAL
[2021-04-12 20:00] VITALS: BP 130/67
[2021-04-13] MEDS: METHYL SALICYLATE/MENTHOL CREAM 85GM TOP SCH ×4 (01:15→21:34)
[2021-04-13] MEDS: METRONIDAZOLE 500MG TABLET PO SCH ×3 (06:00→21:34)
[2021-04-13 08:00] VITALS: BP 119/74
[2021-04-13] MEDS: HYDROCORTISONE ACETATE 25MG SUPP PR SCH ×3 (09:00→21:00)
[2021-04-13] MEDS: POLYETHYLENE GLYCOL 3350 (17GM) 1 DOSE PACK PO SCH ×2 (09:00→09:34)
[2021-04-13] MEDS: DOCUSATE SODIUM 100MG CAPSULE PO SCH ×2 (09:33→17:23)
[2021-04-13] MEDS: PANTOPRAZOLE SODIUM 40 MG/VIAL IV SCH (09:33)
[2021-04-13] MEDS: ENOXAPARIN 30MG/0.3ML SYR SUBCUT SCH (09:33)
[2021-04-13] MEDS: PHENYLEPH/PRAMOXIN/GLYCR/PET RECTAL CREAM 26GM PR SCH ×2 (09:34→17:23)
[2021-04-13] MEDS: LIDOCAINE 5% PATCH TOP SCH (09:34)
[2021-04-13 11:11] LABS: HEMATOCRIT. 35.7 % (36.0-48.0); HEMOGLOBIN. 11.9 g/dL (12.0-16.0); MEAN CORPUSCULAR HEMOGLOBIN 30.9 pg (28.0-32.0); MEAN CORPUSCULAR VOLUME 92.5 fL (81.0-99.0); RED BLOOD CELL COUNT 3.86 mill/uL (4.2-5.4); RED CELL DISTRIBUTION WIDTH 13.1 % (11.6-14.6)
[2021-04-13] MEDS: LEVOFLOXACIN 250MG TABLET PO SCH (12:47)
[2021-04-13 13:59] LABS: PLATELET ESTIMATE NORMAL
[2021-04-13 14:01] LABS: MEAN PLATELET VOLUME 8.3 fl (7.4-10.4); PLATELET 148 x1000/uL (130-400)
[2021-04-13 20:00] VITALS: BP 124/63
[2021-04-14] MEDS: METHYL SALICYLATE/MENTHOL CREAM 85GM TOP SCH ×4 (01:30→18:07)
[2021-04-14] MEDS ORDERED: TRAMADOL 50MG TABLET PO PRN (04:00)
[2021-04-14] MEDS: METRONIDAZOLE 500MG TABLET PO SCH ×3 (06:06→21:16)
[2021-04-14 07:01] LABS: HEMATOCRIT. 37.3 % (36.0-48.0); HEMOGLOBIN. 12.5 g/dL (12.0-16.0); MEAN CORPUSCULAR HEMOGLOBIN 30.2 pg (28.0-32.0); MEAN CORPUSCULAR VOLUME 90.3 fL (81.0-99.0); MEAN PLATELET VOLUME 7.9 fl (7.4-10.4); RED BLOOD CELL COUNT 4.13 mill/uL (4.2-5.4); RED CELL DISTRIBUTION WIDTH 13.1 % (11.6-14.6)
[2021-04-14 07:43] VITALS: BP 137/76
[2021-04-14] MEDS: POLYETHYLENE GLYCOL 3350 (17GM) 1 DOSE PACK PO SCH (09:00)
[2021-04-14] MEDS: HYDROCORTISONE ACETATE 25MG SUPP PR SCH ×2 (09:00→21:00)
[2021-04-14] MEDS: PANTOPRAZOLE SODIUM 40 MG/VIAL IV SCH (09:39)
[2021-04-14] MEDS: ENOXAPARIN 30MG/0.3ML SYR SUBCUT SCH (09:39)
[2021-04-14] MEDS: DOCUSATE SODIUM 100MG CAPSULE PO SCH ×2 (09:41→18:05)
[2021-04-14] MEDS: PHENYLEPH/PRAMOXIN/GLYCR/PET RECTAL CREAM 26GM PR SCH ×2 (09:41→17:00)
[2021-04-14] MEDS: LIDOCAINE 5% PATCH TOP SCH (09:43)
[2021-04-14] MEDS: LEVOFLOXACIN 250MG TABLET PO SCH (13:00)
[2021-04-14 20:00] VITALS: BP 102/56
[2021-04-15] MEDS: METHYL SALICYLATE/MENTHOL CREAM 85GM TOP SCH ×4 (01:15→18:07)
[2021-04-15] MEDS: METRONIDAZOLE 500MG TABLET PO SCH ×2 (06:21→13:47)
[2021-04-15 08:00] VITALS: BP 119/66
[2021-04-15 08:24] LABS: PLATELET ESTIMATE NORMAL
[2021-04-15 08:25] LABS: PLATELET 216 x1000/uL (130-400)
[2021-04-15] MEDS: PHENYLEPH/PRAMOXIN/GLYCR/PET RECTAL CREAM 26GM PR SCH ×2 (09:00→17:00)
[2021-04-15] MEDS: HYDROCORTISONE ACETATE 25MG SUPP PR SCH ×2 (09:00→20:36)
[2021-04-15] MEDS: PANTOPRAZOLE SODIUM 40 MG/VIAL IV SCH (09:00)
[2021-04-15] MEDS: ENOXAPARIN 30MG/0.3ML SYR SUBCUT SCH (09:00)
[2021-04-15] MEDS: LIDOCAINE 5% PATCH TOP SCH (09:00)
[2021-04-15] MEDS: DOCUSATE SODIUM 100MG CAPSULE PO SCH ×2 (09:00→17:00)
[2021-04-15] MEDS: POLYETHYLENE GLYCOL 3350 (17GM) 1 DOSE PACK PO SCH (09:00)
[2021-04-15] MEDS ORDERED: NALOXONE HCL 0.4MG/ML VIAL IV PRN (11:15)
[2021-04-15] MEDS: LEVOFLOXACIN 250MG TABLET PO SCH (13:47)
[2021-04-15 17:09] LABS: 25-HYDROXY VITAMIN D3 27 ng/mL (.)
[2021-04-15 20:00] VITALS: BP 122/64
[2021-04-16] MEDS: METHYL SALICYLATE/MENTHOL CREAM 85GM TOP SCH ×4 (01:17→19:15)
[2021-04-16 08:00] VITALS: BP 131/71
[2021-04-16] MEDS: PANTOPRAZOLE SODIUM 40 MG/VIAL IV SCH (09:00)
[2021-04-16] MEDS: PHENYLEPH/PRAMOXIN/GLYCR/PET RECTAL CREAM 26GM PR SCH ×2 (09:00→17:00)
[2021-04-16] MEDS: DOCUSATE SODIUM 100MG CAPSULE PO SCH (09:00)
[2021-04-16] MEDS: LIDOCAINE 5% PATCH TOP SCH (09:00)
[2021-04-16] MEDS: ENOXAPARIN 30MG/0.3ML SYR SUBCUT SCH (09:00)
[2021-04-16] MEDS: HYDROCORTISONE ACETATE 25MG SUPP PR SCH ×3 (09:00→20:54)
[2021-04-16] MEDS: POLYETHYLENE GLYCOL 3350 (17GM) 1 DOSE PACK PO SCH (09:00)
[2021-04-16] MEDS: LEVOFLOXACIN 250MG TABLET PO SCH (11:00)
[2021-04-16] MEDS ORDERED: ERGOCALCIFEROL 50000UNITS CAPSULE PO SCH (12:00)
[2021-04-16] MEDS: FAMOTIDINE 20MG TABLET PO SCH (12:55)
[2021-04-16 20:00] VITALS: BP 112/53
[2021-04-17] MEDS: METHYL SALICYLATE/MENTHOL CREAM 85GM TOP SCH ×4 (01:22→18:32)
[2021-04-17 08:00] VITALS: BP 120/66
[2021-04-17] MEDS: HYDROCORTISONE ACETATE 25MG SUPP PR SCH ×2 (08:45→20:23)
[2021-04-17] MEDS: PHENYLEPH/PRAMOXIN/GLYCR/PET RECTAL CREAM 26GM PR SCH ×2 (08:45→17:00)
[2021-04-17] MEDS: LIDOCAINE 5% PATCH TOP SCH ×2 (08:46→14:22)
[2021-04-17] MEDS: ENOXAPARIN 30MG/0.3ML SYR SUBCUT SCH (08:46)
[2021-04-17] MEDS: FAMOTIDINE 20MG TABLET PO SCH (08:46)
[2021-04-17 20:35] VITALS: BP 144/66
[2021-04-18] MEDS: METHYL SALICYLATE/MENTHOL CREAM 85GM TOP SCH ×4 (00:44→18:59)
[2021-04-18 07:17] LABS: BASOPHILS % 0.7 % (0.0-2.0); EOSINOPHILS % 1.1 % (0.0-5.0); HEMATOCRIT. 38.5 % (36.0-48.0); HEMOGLOBIN. 12.8 g/dL (12.0-16.0); LYMPHOCYTES % 27.7 % (20.0-50.0); MEAN CORPUSCULAR HEMOGLOBIN 30.1 pg (28.0-32.0); MEAN CORPUSCULAR VOLUME 90.7 fL (81.0-99.0); MEAN PLATELET VOLUME 7.8 fl (7.4-10.4); MONOCYTES % 13.4 % (2.0-8.0); NEUTROPHILS % 57.1 % (40.0-76.0); PLATELET 210 x1000/uL (130-400); RED BLOOD CELL COUNT 4.24 mill/uL (4.2-5.4); RED CELL DISTRIBUTION WIDTH 13.3 % (11.6-14.6)
[2021-04-18 08:00] VITALS: BP 129/66
[2021-04-18] MEDS: FAMOTIDINE 20MG TABLET PO SCH (08:24)
[2021-04-18] MEDS: ENOXAPARIN 30MG/0.3ML SYR SUBCUT SCH (08:25)
[2021-04-18 08:28] LABS: CHLORIDE 111 mEq/L (98-107)
[2021-04-18] MEDS: HYDROCORTISONE ACETATE 25MG SUPP PR SCH ×2 (09:00→21:00)
[2021-04-18] MEDS: LIDOCAINE 5% PATCH TOP SCH (09:00)
[2021-04-18] MEDS: PHENYLEPH/PRAMOXIN/GLYCR/PET RECTAL CREAM 26GM PR SCH ×2 (09:00→17:00)
[2021-04-19 00:36] VITALS: BP 112/64
[2021-04-19] MEDS: METHYL SALICYLATE/MENTHOL CREAM 85GM TOP SCH ×4 (01:15→19:15)
[2021-04-19 08:00] VITALS: BP 127/75
[2021-04-19] MEDS: HYDROCORTISONE ACETATE 25MG SUPP PR SCH ×2 (09:00→20:05)
[2021-04-19] MEDS: PHENYLEPH/PRAMOXIN/GLYCR/PET RECTAL CREAM 26GM PR SCH ×2 (09:00→17:00)
[2021-04-19] MEDS: LIDOCAINE 5% PATCH TOP SCH (09:00)
[2021-04-19] MEDS: FAMOTIDINE 20MG TABLET PO SCH (09:28)
[2021-04-19] MEDS: DOCUSATE SODIUM 100MG CAPSULE PO PRN (09:28)
[2021-04-19] MEDS: ENOXAPARIN 30MG/0.3ML SYR SUBCUT SCH (09:29)
[2021-04-19 20:00] VITALS: BP 113/52
[2021-04-20] MEDS: METHYL SALICYLATE/MENTHOL CREAM 85GM TOP SCH ×2 (00:36→06:17)
[2021-04-20 08:00] VITALS: BP 120/52
[2021-04-20] MEDS: ENOXAPARIN 30MG/0.3ML SYR SUBCUT SCH (09:00)
[2021-04-20] MEDS: HYDROCORTISONE ACETATE 25MG SUPP PR SCH (09:00)
[2021-04-20] MEDS: PHENYLEPH/PRAMOXIN/GLYCR/PET RECTAL CREAM 26GM PR SCH (09:00)
[2021-04-20] MEDS: LIDOCAINE 5% PATCH TOP SCH (09:00)
[2021-04-20] MEDS: FAMOTIDINE 20MG TABLET PO SCH (09:35)
[2021-04-20 10:07] VITALS: BP 120/52
== END 2021-04-20 14:40 | disposition home health service (06) | DRG 554 ==
LOC: 4WST 16:50 → UNDOADMIN 18:23 → 4WST 18:23
PROVIDERS: ADMIT Physical Medicine & Rehabilitation Spinal Cord Injury Medicine; ATTEND Internal Medicine
DX: M15.9 Polyosteoarthritis, unspecified (principal); K57.92 Diverticulitis of intestine, part unspecified, without perforation or abscess without bleeding; N39.0 Urinary tract infection, site not specified; K59.2 Neurogenic bowel, not elsewhere classified; R53.81 Other malaise; E78.5 Hyperlipidemia, unspecified; J44.9 Chronic obstructive pulmonary disease, unspecified; Z87.891 Personal history of nicotine dependence; I10 Essential (primary) hypertension; R20.0 Anesthesia of skin; Z98.1 Arthrodesis status; Z82.49 Family history of ischemic heart disease and other diseases of the circulatory system; Z82.0 Family history of epilepsy and other diseases of the nervous system; Z90.710 Acquired absence of both cervix and uterus; N31.9 Neuromuscular dysfunction of bladder, unspecified; F43.12 Post-traumatic stress disorder, chronic; D63.8 Anemia in other chronic diseases classified elsewhere; M79.609 Pain in unspecified limb; R33.9 Retention of urine, unspecified; K59.00 Constipation, unspecified; R26.9 Unspecified abnormalities of gait and mobility; Z87.448 Personal history of other diseases of urinary system; K64.9 Unspecified hemorrhoids; E55.9 Vitamin D deficiency, unspecified; E53.8 Deficiency of other specified B group vitamins
CPT/HCPCS: 36415; 80048; 80053; 81003; 82270; 82306; 82607; 82728; 82746; 83540; 83550; 84134; 84443; 85014; 85018; 85025; 93970; 97110; 97116; 97162; 97166; 97530; 97535; C9113; J1650; J1885; J2543; J3420; J7040; J7060; A4315; A5200

== ENCOUNTER 2021-06-06 18:04 | Emergency (ER) | payer MEDICARE, MEDICAID ==
[~2021-06-06] VITALS: Ht 160 cm; Wt 70.0 kg
[~2021-06-06 18:04] MED LIST changes: +AMLO10TA80 PO; -CEPH250C2 MT; -CEPH500C2 MT; -DOCU250C69 MT; +FAMO40TA7 PO; +IBUP-2028 PO; +LINA72CA PO; -MAGN296S70 MT; -MOM PO; -[UNRECOGNIZED DRUG - CODE] OP
[2021-06-06] MEDS ORDERED: ACETAMINOPHEN 325MG TABLET PO STA (21:03)
[2021-06-06] MEDS ORDERED: FAMOTIDINE 20MG TABLET PO ONE (21:15)
[2021-06-06 22:16] LABS: CHLORIDE 105 mEq/L (98-107)
[2021-06-06] MEDS ORDERED: FAMOTIDINE 20MG TABLET PO NR (22:30)
[2021-06-06] MEDS: ACETAMINOPHEN 325MG TABLET PO NR ×2 (22:33→23:03)
[2021-06-06 23:05] LABS: HEMATOCRIT. 40.4 % (36.0-48.0); HEMOGLOBIN. 13.1 g/dL (12.0-16.0); MEAN CORPUSCULAR HEMOGLOBIN 29.6 pg (28.0-32.0); MEAN CORPUSCULAR VOLUME 91.4 fL (81.0-99.0); MEAN PLATELET VOLUME 7.3 fl (7.4-10.4); PLATELET 209 x1000/uL (130-400); RED BLOOD CELL COUNT 4.42 mill/uL (4.2-5.4); RED CELL DISTRIBUTION WIDTH 12.9 % (11.6-14.6)
[2021-06-06 23:31] LABS: PLATELET ESTIMATE NORMAL
[2021-06-06 23:35] LABS: CLARITY URINE CLEAR (CLEAR); COLOR URINE YELLOW (YELLOW); KETONES URINE NEGATIVE (NEGATIVE); LEUKOCYTE ESTERASE URINE NEGATIVE (NEGATIVE); NITRITE URINE NEGATIVE (NEGATIVE); OCCULT BLOOD URINE NEGATIVE (NEGATIVE); PROTEIN URINE NEGATIVE (NEGATIVE); SPECIFIC GRAVITY URINE 1.007 (1.005-1.030); UROBILINOGEN URINE 0.2 E.U./dL (0.2-1.0)
[2021-06-07 00:15] VITALS: BP 136/68
== END 2021-06-07 00:16 | disposition home or self-care (01) ==
LOC: ER 18:14
DX: R10.13 Epigastric pain (principal); I10 Essential (primary) hypertension; Z87.19 Personal history of other diseases of the digestive system; Z90.710 Acquired absence of both cervix and uterus; Z79.82 Long term (current) use of aspirin; Z88.8 Allergy status to other drugs, medicaments and biological substances
CPT/HCPCS: 36415; 80053; 81003; 85025; 99283

== ENCOUNTER 2021-07-22 15:16 | Emergency (ER) | payer MEDICAID, MEDICARE ==
[~2021-07-22] VITALS: Ht 167.6 cm; Wt 78.0 kg
[2021-07-22] MEDS ORDERED: VISCOUS LIDOCAINE 2% 15 ML UDC PO STA (16:39)
[2021-07-22] MEDS ORDERED: MAGNESIUM/ALUMINUM HYDROXIDE/SIMETHICONE 30ML UDC PO STA (16:39)
[2021-07-22] MEDS ORDERED: KETOROLAC 15MG/ML VIAL IM ONE ×2 (16:45→20:15)
[2021-07-22] MEDS ORDERED: OMEPRAZOLE 20MG CAPSULE EXTENDED RELEASE PO ONE (16:45)
[2021-07-22 18:17] LABS: CLARITY URINE CLEAR (CLEAR); COLOR URINE YELLOW (YELLOW); KETONES URINE NEGATIVE (NEGATIVE); LEUKOCYTE ESTERASE URINE NEGATIVE (NEGATIVE); NITRITE URINE NEGATIVE (NEGATIVE); OCCULT BLOOD URINE NEGATIVE (NEGATIVE); PROTEIN URINE NEGATIVE (NEGATIVE); SPECIFIC GRAVITY URINE 1.006 (1.005-1.030); UROBILINOGEN URINE 0.2 E.U./dL (0.2-1.0)
[2021-07-22 18:24] LABS: CHLORIDE 106 mEq/L (98-107)
[2021-07-22 18:36] LABS: BASOPHILS % 0.8 % (0.0-2.0); EOSINOPHILS % 0.6 % (0.0-5.0); HEMATOCRIT. 40.8 % (36.0-48.0); HEMOGLOBIN. 13.1 g/dL (12.0-16.0); LYMPHOCYTES % 26.3 % (20.0-50.0); MEAN CORPUSCULAR HEMOGLOBIN 29.6 pg (28.0-32.0); MONOCYTES % 12.5 % (2.0-8.0); NEUTROPHILS % 59.8 % (40.0-76.0); RED BLOOD CELL COUNT 4.44 mill/uL (4.2-5.4); RED CELL DISTRIBUTION WIDTH 13.9 % (11.6-14.6)
[2021-07-22 18:51] LABS: MEAN PLATELET VOLUME 8.4 fl (7.4-10.4); PLATELET 250 x1000/uL (130-400)
[2021-07-22] MEDS ORDERED: OMEP20TA23 MT (19:46)
[2021-07-22 20:25] VITALS: BP 125/74
== END 2021-07-22 20:27 | disposition home or self-care (01) ==
LOC: ER 15:16
DX: R10.84 Generalized abdominal pain (principal); I10 Essential (primary) hypertension; Z87.19 Personal history of other diseases of the digestive system; Z98.1 Arthrodesis status; Z79.82 Long term (current) use of aspirin; Z88.5 Allergy status to narcotic agent; Z88.8 Allergy status to other drugs, medicaments and biological substances
CPT/HCPCS: 36415; 73562; 74176; 80053; 81003; 83690; 85025; 96372; 99285; J1885

== ENCOUNTER 2021-08-01 17:57 | Emergency (ER) | payer MEDICARE ==
[~2021-08-01] VITALS: Ht 170.2 cm; Wt 59.0 kg
[~2021-08-01 17:57] MED LIST changes: +OMEP20TA23 MT
[2021-08-01] MEDS ORDERED: ONDANSETRON HCL 4MG/2ML INJ IV STA (20:48)
[2021-08-01 21:39] LABS: BASOPHILS % 0.9 % (0.0-2.0); CLARITY URINE CLOUDY (CLEAR); COLOR URINE YELLOW (YELLOW); EOSINOPHILS % 0.9 % (0.0-5.0); HEMATOCRIT. 44.9 % (36.0-48.0); HEMOGLOBIN. 14.6 g/dL (12.0-16.0); KETONES URINE TRACE (NEGATIVE); LEUKOCYTE ESTERASE URINE 1+ (NEGATIVE); LYMPHOCYTES % 33.2 % (20.0-50.0); MEAN CORPUSCULAR HEMOGLOBIN 29.4 pg (28.0-32.0); MEAN CORPUSCULAR VOLUME 90.5 fL (81.0-99.0); MEAN PLATELET VOLUME 7.4 fl (7.4-10.4); MONOCYTES % 10.5 % (2.0-8.0); NEUTROPHILS % 54.5 % (40.0-76.0); NITRITE URINE NEGATIVE (NEGATIVE); OCCULT BLOOD URINE NEGATIVE (NEGATIVE); PLATELET 251 x1000/uL (130-400); PROTEIN URINE NEGATIVE (NEGATIVE); RED BLOOD CELL COUNT 4.96 mill/uL (4.2-5.4); RED CELL DISTRIBUTION WIDTH 13.4 % (11.6-14.6); SPECIFIC GRAVITY URINE 1.015 (1.005-1.030); UROBILINOGEN URINE 0.2 E.U./dL (0.2-1.0)
[2021-08-01 21:48] LABS: CHLORIDE 105 mEq/L (98-107)
[2021-08-01 21:50] LABS: PROTHROMBIN TIME 10.3 sec (9.6-11.0)
[2021-08-01] MEDS ORDERED: NITR-87 MT (23:46)
[2021-08-02] VITALS: BP 131/66
[2021-08-02] MEDS ORDERED: NITROFURANTOIN 100MG M/M CAPSULE PO ONE
[2021-08-02] MEDS ORDERED: ACETAMINOPHEN 325MG TABLET PO ONE
== END 2021-08-02 00:58 | disposition home or self-care (01) ==
LOC: ER 17:57
DX: N39.0 Urinary tract infection, site not specified (principal); I31.3 Pericardial effusion (noninflammatory); Z88.8 Allergy status to other drugs, medicaments and biological substances
CPT/HCPCS: 36415; 74176; 80053; 81003; 83605; 83690; 85025; 85610; 96374; 99284; J2405

== ENCOUNTER 2021-08-07 20:49 | Emergency (ER) | payer MEDICARE, MEDICAID ==
[~2021-08-07] VITALS: Ht 170.2 cm; Wt 64.0 kg
[~2021-08-07 20:49] MED LIST changes: +NITR-87 MT
[2021-08-07 21:42] VITALS: BP 131/67
[2021-08-07] MEDS ORDERED: ACETAMINOPHEN 500MG TABLET PO ONE (22:45)
== END 2021-08-07 23:10 | disposition home or self-care (01) ==
LOC: ER 20:49
DX: G89.29 Other chronic pain (principal); R10.9 Unspecified abdominal pain; I45.2 Bifascicular block
CPT/HCPCS: 93005; 99283

== ENCOUNTER → 2021-08-08 | Outpatient (CLI) | payer MEDICARE, MEDICAID | END | disposition home or self-care (01) | LOC: US 07:23 | PROVIDERS: ATTEND Internal Medicine Gastroenterology | DX: K80.20 Calculus of gallbladder without cholecystitis without obstruction (principal); N28.1 Cyst of kidney, acquired; R10.9 Unspecified abdominal pain | CPT/HCPCS: 76700 ==

== ENCOUNTER 2021-08-30 23:13 | Emergency (ER) | payer MEDICARE, MEDICAID ==
[~2021-08-30] VITALS: Ht 170.2 cm; Wt 63.6 kg
[2021-08-31] MEDS ORDERED: HYDROCODONE/ACETAMINOPHEN 10/325MG TABLET PO ONE (01:30)
[2021-08-31 04:00] VITALS: BP 115/61
== END 2021-08-31 06:19 | disposition home or self-care (01) ==
LOC: ER 23:13
DX: M16.11 Unilateral primary osteoarthritis, right hip (principal); Z98.890 Other specified postprocedural states; Z79.82 Long term (current) use of aspirin; Z88.8 Allergy status to other drugs, medicaments and biological substances
CPT/HCPCS: 72170; 99283

== ENCOUNTER 2021-09-10 17:21 | Emergency (ER) | payer MEDICARE, MEDICAID ==
[~2021-09-10] VITALS: Ht 167.6 cm; Wt 80.0 kg
[2021-09-10] MEDS ORDERED: KETOROLAC 15MG/ML VIAL IV ONE (21:15)
[2021-09-10] MEDS ORDERED: HYDROCODONE/APAP 7.5/325MG 1 TAB TABLET PO NR (21:15)
[2021-09-10] MEDS ORDERED: ACETAMINOPHEN 325MG TABLET PO ONE (21:15)
[2021-09-10] MEDS ORDERED: HYDROCODONE/APAP 7.5/325MG 1 TAB TABLET PO ONE (21:15)
[2021-09-10] MEDS ORDERED: KETOROLAC 15MG/ML VIAL IV NR (21:15)
[2021-09-10 21:51] LABS: BASOPHILS % 1.1 % (0.0-2.0); EOSINOPHILS % 1.1 % (0.0-5.0); HEMATOCRIT. 38.7 % (36.0-48.0); HEMOGLOBIN. 12.5 g/dL (12.0-16.0); MEAN CORPUSCULAR HEMOGLOBIN 29.3 pg (28.0-32.0); MEAN CORPUSCULAR VOLUME 90.8 fL (81.0-99.0); MEAN PLATELET VOLUME 7.3 fl (7.4-10.4); MONOCYTES % 12.1 % (2.0-8.0); NEUTROPHILS % 60.7 % (40.0-76.0); PLATELET 266 x1000/uL (130-400); RED BLOOD CELL COUNT 4.26 mill/uL (4.2-5.4); RED CELL DISTRIBUTION WIDTH 14.1 % (11.6-14.6)
[2021-09-10 22:03] LABS: CHLORIDE 107 mEq/L (98-107)
[2021-09-10] MEDS ORDERED: LIDOCAINE 5% PATCH TOP SCH (22:45)
[2021-09-10 22:48] VITALS: BP 125/75
[2021-09-11] MEDS ORDERED: DICL100G31 TP (02:08)
== END 2021-09-11 02:41 | disposition home or self-care (01) ==
LOC: ER 17:21 → CANBEDREQ 09-11 04:24
DX: M25.551 Pain in right hip (principal); R51.9 Headache, unspecified; R10.9 Unspecified abdominal pain; G89.11 Acute pain due to trauma; Z91.81 History of falling; M16.11 Unilateral primary osteoarthritis, right hip
CPT/HCPCS: 36415; 70450; 73502; 74176; 80053; 83690; 84484; 85025; 93005; 96374; 99285; J1885

== ENCOUNTER 2021-10-24 13:06 | Inpatient (IN) | payer MEDICARE ==
[~2021-10-24] VITALS: Ht 170.2 cm; Wt 67.7 kg
[~2021-10-24 13:06] MED LIST changes: +DICL100G31 TP; +HYDR-4009 MT; -NITR-87 MT; +POLY17PO3 MT
[2021-10-24] MEDS ORDERED: NITROGLYCERIN OINT 1GM/INCH UDPKT TD ONE (14:30)
[2021-10-24] MEDS ORDERED: ASPIRIN 81MG TABLET PO ONE (14:30)
[2021-10-24] MEDS ORDERED: ONDANSETRON HCL 4MG/2ML INJ IV ONE (14:30)
[2021-10-24] MEDS ORDERED: FUROSEMIDE 40MG/4ML VIAL IV ONE (14:30)
[2021-10-24 15:34] LABS: BASOPHILS % 0.8 % (0.0-2.0); EOSINOPHILS % 1.3 % (0.0-5.0); HEMATOCRIT. 39.5 % (36.0-48.0); HEMOGLOBIN. 12.5 g/dL (12.0-16.0); LYMPHOCYTES % 36.3 % (20.0-50.0); MEAN CORPUSCULAR HEMOGLOBIN 29.6 pg (28.0-32.0); MEAN CORPUSCULAR VOLUME 93.7 fL (81.0-99.0); MEAN PLATELET VOLUME 7.2 fl (7.4-10.4); MONOCYTES % 13.7 % (2.0-8.0); NEUTROPHILS % 47.9 % (40.0-76.0); PLATELET 196 x1000/uL (130-400); RED BLOOD CELL COUNT 4.22 mill/uL (4.2-5.4); RED CELL DISTRIBUTION WIDTH 16.1 % (11.6-14.6)
[2021-10-24 15:42] LABS: CHLORIDE 110 mEq/L (98-107)
[2021-10-24 16:37] LABS: PARTIAL THROMBOPLASTIN TIME 23.8 sec (23.4-31.0); PROTHROMBIN TIME 10.6 sec (9.6-11.0)
[2021-10-24 21:00] VITALS: BP 125/70
[2021-10-24] MEDS ORDERED: ONDANSETRON HCL 4MG/2ML INJ IV PRN (22:00)
[2021-10-24] MEDS ORDERED: IPRATROPIUM/ALBUTEROL 0.5-3(2.5)MG/3ML NEB NEB PRN (22:00)
[2021-10-24] MEDS ORDERED: HYDROCODONE/ACETAMINOPHEN 5/325MG TABLET PO PRN (22:00)
[2021-10-24] MEDS ORDERED: MORPHINE SULFATE 2 MG/ML CPJ (NOT FOR IM USE) IV PRN (22:00)
[2021-10-24] MEDS ORDERED: CLONIDINE 0.1MG TABLET PO PRN (22:00)
[2021-10-24] MEDS ORDERED: NALOXONE HCL 0.4MG/ML VIAL IV PRN (22:30)
[2021-10-25] VITALS: BP 123/60
[2021-10-25 04:00] VITALS: BP 129/75
[2021-10-25 06:35] LABS: HEMATOCRIT. 36.3 % (36.0-48.0); HEMOGLOBIN. 11.6 g/dL (12.0-16.0); MEAN CORPUSCULAR HEMOGLOBIN 29.3 pg (28.0-32.0); MEAN CORPUSCULAR VOLUME 91.5 fL (81.0-99.0); MEAN PLATELET VOLUME 7.3 fl (7.4-10.4); PLATELET 188 x1000/uL (130-400); RED BLOOD CELL COUNT 3.97 mill/uL (4.2-5.4)
[2021-10-25 08:00] VITALS: BP 137/79
[2021-10-25] MEDS: FUROSEMIDE 40MG/4ML VIAL IV SCH (08:59)
[2021-10-25] MEDS: THIAMINE HCL 100MG TABLET PO SCH (09:00)
[2021-10-25] MEDS: ENOXAPARIN 30MG/0.3ML SYR SUBCUT SCH (09:01)
[2021-10-25 10:59] LABS: PLATELET ESTIMATE NORMAL
[2021-10-25 12:00] VITALS: BP 130/64
[2021-10-25] MEDS: MAGNESIUM/ALUMINUM HYDROXIDE/SIMETHICONE 30ML UDC PO PRN (13:11)
[2021-10-25] MEDS: DOCUSATE SODIUM 250MG CAPSULE PO SCH ×2 (13:12→20:53)
[2021-10-25] MEDS ORDERED: POLYETHYLENE GLYCOL 3350 (17GM) 1 DOSE PACK PO PRN (13:45)
[2021-10-25 16:00] VITALS: BP 109/65
[2021-10-25 20:30] VITALS: BP 131/71
[2021-10-25] MEDS ORDERED: DEXTROSE 50% WATER 50ML SYRINGE IV PRN (22:15)
[2021-10-26 00:30] VITALS: BP 137/96
[2021-10-26 04:00] VITALS: BP 103/70
[2021-10-26] MEDS: BLOOD SUGAR DIAGNOSTIC STRIP TEST SCH ×4 (06:40→21:00)
[2021-10-26] MEDS: INSULIN LISPRO 100 UNITS/ML SUBCUT SCH ×4 (07:17→21:00)
[2021-10-26 08:00] VITALS: BP 102/64
[2021-10-26] MEDS: ENOXAPARIN 30MG/0.3ML SYR SUBCUT SCH (09:36)
[2021-10-26] MEDS: DOCUSATE SODIUM 250MG CAPSULE PO SCH ×2 (09:36→17:05)
[2021-10-26] MEDS: FUROSEMIDE 40MG/4ML VIAL IV SCH (09:37)
[2021-10-26] MEDS: MAGNESIUM/ALUMINUM HYDROXIDE/SIMETHICONE 30ML UDC PO PRN (09:37)
[2021-10-26] MEDS: THIAMINE HCL 100MG TABLET PO SCH (09:37)
[2021-10-26 11:27] LABS: CLARITY URINE CLEAR (CLEAR); COLOR URINE YELLOW (YELLOW); KETONES URINE NEGATIVE (NEGATIVE); LEUKOCYTE ESTERASE URINE NEGATIVE (NEGATIVE); NITRITE URINE NEGATIVE (NEGATIVE); OCCULT BLOOD URINE NEGATIVE (NEGATIVE); PROTEIN URINE NEGATIVE (NEGATIVE); UROBILINOGEN URINE 0.2 E.U./dL (0.2-1.0)
[2021-10-26 12:00] VITALS: BP 133/81
[2021-10-26] MEDS ORDERED: POLYETHYLENE GLYCOL 3350 (17GM) 1 DOSE PACK PO NR (15:00)
[2021-10-26 16:00] VITALS: BP 123/72
[2021-10-26] MEDS ORDERED: LACTULOSE 20G/30ML UDC PO SCH (18:00)
[2021-10-26 20:00] VITALS: BP 166/91
[2021-10-27 00:03] VITALS: BP 159/95
[2021-10-27 04:00] VITALS: BP 131/77
[2021-10-27] MEDS: BLOOD SUGAR DIAGNOSTIC STRIP TEST SCH (06:00)
[2021-10-27] MEDS: DOCUSATE SODIUM 250MG CAPSULE PO SCH (09:21)
[2021-10-27] MEDS: THIAMINE HCL 100MG TABLET PO SCH (09:21)
[2021-10-27] MEDS: FUROSEMIDE 40MG/4ML VIAL IV SCH (09:21)
[2021-10-27] MEDS: INSULIN LISPRO 100 UNITS/ML SUBCUT SCH (09:22)
[2021-10-27 10:22] VITALS: BP 116/65
== END 2021-10-27 10:40 | disposition home or self-care (01) | DRG 291 ==
LOC: ER 13:06 → 7WST 16:49 → EDBEDREQ 16:52 → EDBEDREQTM 16:52 → ENRESERV 19:17
PROVIDERS: ADMIT Internal Medicine Nephrology; ATTEND Internal Medicine Nephrology
DX: I11.0 Hypertensive heart disease with heart failure (principal); I50.31 Acute diastolic (congestive) heart failure; C90.00 Multiple myeloma not having achieved remission; E44.0 Moderate protein-calorie malnutrition; I31.3 Pericardial effusion (noninflammatory); J44.9 Chronic obstructive pulmonary disease, unspecified; E78.5 Hyperlipidemia, unspecified; E87.8 Other disorders of electrolyte and fluid balance, not elsewhere classified; K59.09 Other constipation; G89.29 Other chronic pain; M48.02 Spinal stenosis, cervical region; R10.9 Unspecified abdominal pain; M19.90 Unspecified osteoarthritis, unspecified site; Z98.1 Arthrodesis status; Z68.23 Body mass index [BMI] 23.0-23.9, adult; Z88.8 Allergy status to other drugs, medicaments and biological substances; Z79.899 Other long term (current) drug therapy
CPT/HCPCS: 36415; 71045; 74018; 80048; 80053; 81003; 82962; 83036; 83880; 84484; 85025; 93005; 93306; 93970; 97116; 97162; 99285; J1650; J1815; J1940; J2405

== ENCOUNTER 2021-11-10 09:24 | Emergency (ER) | payer MEDICARE ==
[~2021-11-10] VITALS: Ht 167.6 cm; Wt 65.0 kg
[2021-11-10 11:58] VITALS: BP 120/79
[2021-11-10] MEDS ORDERED: HYDR30CR80 TP (13:12)
[2021-11-10 13:43] LABS: CLARITY URINE CLEAR (CLEAR); COLOR URINE YELLOW (YELLOW); KETONES URINE NEGATIVE (NEGATIVE); LEUKOCYTE ESTERASE URINE NEGATIVE (NEGATIVE); NITRITE URINE NEGATIVE (NEGATIVE); OCCULT BLOOD URINE NEGATIVE (NEGATIVE); PH URINE 5.5 (4.5-8.0); PROTEIN URINE TRACE (NEGATIVE); SPECIFIC GRAVITY URINE 1.007 (1.005-1.030); UROBILINOGEN URINE 0.2 E.U./dL (0.2-1.0)
== END 2021-11-10 16:06 | disposition home or self-care (01) ==
LOC: ER 09:41
DX: R23.4 Changes in skin texture (principal); Z88.5 Allergy status to narcotic agent; Z88.9 Allergy status to unspecified drugs, medicaments and biological substances; Z79.899 Other long term (current) drug therapy
CPT/HCPCS: 81003; 99283

== ENCOUNTER 2021-11-11 17:49 | Emergency (ER) | payer MEDICARE ==
[~2021-11-11] VITALS: Ht 170.2 cm; Wt 57.0 kg
[~2021-11-11 17:49] MED LIST changes: +HYDR30CR80 TP
[2021-11-11 17:57] VITALS: BP 157/66
[2021-11-11 22:33] LABS: CLARITY URINE CLEAR (CLEAR); COLOR URINE YELLOW (YELLOW); KETONES URINE 1+ (NEGATIVE); LEUKOCYTE ESTERASE URINE 1+ (NEGATIVE); NITRITE URINE NEGATIVE (NEGATIVE); OCCULT BLOOD URINE NEGATIVE (NEGATIVE); PH URINE 5.5 (4.5-8.0); PROTEIN URINE TRACE (NEGATIVE); SPECIFIC GRAVITY URINE 1.018 (1.005-1.030); UROBILINOGEN URINE 0.2 E.U./dL (0.2-1.0)
[2021-11-11 22:55] LABS: BASOPHILS % 0.5 % (0.0-2.0); EOSINOPHILS % 0.3 % (0.0-5.0); HEMATOCRIT. 42.1 % (36.0-48.0); HEMOGLOBIN. 13.4 g/dL (12.0-16.0); LYMPHOCYTES % 20.2 % (20.0-50.0); MEAN CORPUSCULAR HEMOGLOBIN 29.7 pg (28.0-32.0); MEAN PLATELET VOLUME 7.1 fl (7.4-10.4); MONOCYTES % 12.2 % (2.0-8.0); NEUTROPHILS % 66.8 % (40.0-76.0); PLATELET 207 x1000/uL (130-400); RED BLOOD CELL COUNT 4.52 mill/uL (4.2-5.4); RED CELL DISTRIBUTION WIDTH 15.5 % (11.6-14.6)
[2021-11-11 23:00] LABS: CHLORIDE 110 mEq/L (98-107)
== END 2021-11-12 00:59 | disposition home or self-care (01) ==
LOC: ER 18:02
DX: K60.2 Anal fissure, unspecified (principal); R30.0 Dysuria; K59.00 Constipation, unspecified; K62.89 Other specified diseases of anus and rectum; Z85.9 Personal history of malignant neoplasm, unspecified; Z79.899 Other long term (current) drug therapy
CPT/HCPCS: 36415; 76770; 80048; 81003; 85025; 99284

== ENCOUNTER 2021-11-25 16:16 | Emergency (ER) | payer MEDICARE ==
[~2021-11-25] VITALS: Ht 170.2 cm; Wt 62.0 kg
[2021-11-25] MEDS ORDERED: DICYCLOMINE 10 MG/5 ML ORAL SYR PO STA (18:34)
[2021-11-25] MEDS ORDERED: ACETAMINOPHEN 325MG TABLET PO STA (18:34)
[2021-11-25] MEDS ORDERED: SODIUM CHLORIDE 0.9% 500 ML IV ONE (18:45)
[2021-11-25 20:00] LABS: CLARITY URINE CLEAR (CLEAR); COLOR URINE YELLOW (YELLOW); KETONES URINE NEGATIVE (NEGATIVE); LEUKOCYTE ESTERASE URINE NEGATIVE (NEGATIVE); NITRITE URINE NEGATIVE (NEGATIVE); OCCULT BLOOD URINE NEGATIVE (NEGATIVE); PROTEIN URINE NEGATIVE (NEGATIVE); SPECIFIC GRAVITY URINE 1.005 (1.005-1.030); UROBILINOGEN URINE 0.2 E.U./dL (0.2-1.0)
[2021-11-25 20:49] LABS: HEMATOCRIT. 35.4 % (36.0-48.0); HEMOGLOBIN. 11.5 g/dL (12.0-16.0); MEAN CORPUSCULAR HEMOGLOBIN 29.4 pg (28.0-32.0); MEAN CORPUSCULAR VOLUME 90.3 fL (81.0-99.0); MEAN PLATELET VOLUME 7.3 fl (7.4-10.4); PLATELET 300 x1000/uL (130-400); RED BLOOD CELL COUNT 3.92 mill/uL (4.2-5.4); RED CELL DISTRIBUTION WIDTH 14.5 % (11.6-14.6)
[2021-11-25 20:53] LABS: CHLORIDE 105 mEq/L (98-107)
[2021-11-25 22:00] VITALS: BP 124/71
[2021-11-25 23:37] LABS: PLATELET ESTIMATE NORMAL
== END 2021-11-25 23:51 | disposition home or self-care (01) ==
LOC: ER 16:16
DX: R10.13 Epigastric pain (principal); Z85.9 Personal history of malignant neoplasm, unspecified; Z98.1 Arthrodesis status; Z79.82 Long term (current) use of aspirin; Z88.8 Allergy status to other drugs, medicaments and biological substances
CPT/HCPCS: 36415; 80053; 81003; 83690; 85025; 93005; 96360; 99284; J7040

== ENCOUNTER 2021-11-27 13:36 | Emergency (ER) | payer MEDICARE ==
[~2021-11-27] VITALS: Ht 160 cm; Wt 80.0 kg
[2021-11-27] MEDS ORDERED: HYDROCODONE/ACETAMINOPHEN 5/325MG TABLET PO ONE (17:00)
[2021-11-27] MEDS ORDERED: MELO-105 MT (18:48)
[2021-11-27 19:11] VITALS: BP 129/71
== END 2021-11-27 19:13 | disposition home or self-care (01) ==
LOC: ER 13:36
DX: M16.11 Unilateral primary osteoarthritis, right hip (principal)
CPT/HCPCS: 73502; 99283

== ENCOUNTER 2021-12-04 14:18 | Emergency (ER) | payer MEDICARE ==
[~2021-12-04] VITALS: Ht 170.2 cm; Wt 82.0 kg
[~2021-12-04 14:18] MED LIST changes: +MELO-105 MT
[2021-12-04 14:32] VITALS: BP 129/73
[2021-12-04] MEDS ORDERED: PHEN51CR24 TP (17:51)
[2021-12-04] MEDS ORDERED: SENN-257 MT (17:51)
[2021-12-04] MEDS ORDERED: DOCU-138 MT (17:52)
== END 2021-12-04 18:25 | disposition home or self-care (01) ==
LOC: ER 15:32
DX: K64.4 Residual hemorrhoidal skin tags (principal); G89.29 Other chronic pain; M54.89 Other dorsalgia
CPT/HCPCS: 99282

== ENCOUNTER 2021-12-06 18:37 | Emergency (ER) | payer MEDICARE ==
[~2021-12-06] VITALS: Ht 165.1 cm; Wt 59.0 kg
[~2021-12-06 18:37] MED LIST changes: +DOCU-138 MT; +PHEN51CR24 TP; +SENN-257 MT
[2021-12-07] MEDS ORDERED: DICLOFENAC SODIUM 1% GEL 50GM TOP SCH (00:45)
[2021-12-07 01:14] VITALS: BP 138/74
== END 2021-12-07 01:14 | disposition home or self-care (01) ==
LOC: ER 18:37
DX: G89.29 Other chronic pain (principal); M54.89 Other dorsalgia; M25.551 Pain in right hip; K64.4 Residual hemorrhoidal skin tags; K59.09 Other constipation
CPT/HCPCS: 99283

== ENCOUNTER 2021-12-19 10:31 | Inpatient (IN) | payer MEDICARE, MEDICAID ==
[~2021-12-19] VITALS: Ht 165.1 cm; Wt 70.8 kg
[2021-12-19 11:53] LABS: BASOPHILS % 0.6 % (0.0-2.0); HEMOGLOBIN. 13.6 g/dL (12.0-16.0); LYMPHOCYTES % 23.2 % (20.0-50.0); MEAN CORPUSCULAR HEMOGLOBIN 29.8 pg (28.0-32.0); MEAN CORPUSCULAR VOLUME 91.9 fL (81.0-99.0); MEAN PLATELET VOLUME 7.8 fl (7.4-10.4); MONOCYTES % 11.1 % (2.0-8.0); NEUTROPHILS % 64.1 % (40.0-76.0); PLATELET 266 x1000/uL (130-400); RED BLOOD CELL COUNT 4.58 mill/uL (4.2-5.4); RED CELL DISTRIBUTION WIDTH 15.7 % (11.6-14.6)
[2021-12-19 11:59] LABS: PROTHROMBIN TIME 10.3 sec (9.6-11.0)
[2021-12-19 12:01] LABS: CHLORIDE 100 mEq/L (98-107)
[2021-12-19] MEDS ORDERED: MORPHINE SULFATE 4 MG/ML CPJ (NOT FOR IM USE) IV ONE ×2 (12:15→12:30)
[2021-12-19] MEDS ORDERED: ACETAMINOPHEN 325MG TABLET PO ONE (12:30)
[2021-12-19] MEDS ORDERED: IBUPROFEN 400MG TABLET PO ONE (12:30)
[2021-12-19 18:14] LABS: CLARITY URINE CLEAR (CLEAR); COLOR URINE YELLOW (YELLOW); KETONES URINE NEGATIVE (NEGATIVE); LEUKOCYTE ESTERASE URINE TRACE (NEGATIVE); NITRITE URINE NEGATIVE (NEGATIVE); OCCULT BLOOD URINE NEGATIVE (NEGATIVE); PROTEIN URINE NEGATIVE (NEGATIVE); SPECIFIC GRAVITY URINE 1.013 (1.005-1.030); UROBILINOGEN URINE 0.2 E.U./dL (0.2-1.0)
[2021-12-19] MEDS ORDERED: ONDANSETRON HCL 4MG/2ML INJ IV PRN (18:30)
[2021-12-19] MEDS ORDERED: CLONIDINE 0.1MG TABLET PO PRN (18:30)
[2021-12-19] MEDS ORDERED: MAGNESIUM/ALUMINUM HYDROXIDE/SIMETHICONE 30ML UDC PO PRN (18:30)
[2021-12-19] MEDS: SODIUM CHLORIDE 0.9% 1,000 ML IV SCH (18:30)
[2021-12-19 20:00] VITALS: BP 100/55
[2021-12-19 21:00] VITALS: BP 100/55
[2021-12-19] MEDS ORDERED: KETOROLAC 15MG/ML VIAL IM PRN (21:00)
[2021-12-19] MEDS ORDERED: NALOXONE HCL 0.4MG/ML VIAL IV PRN (21:15)
[2021-12-19] MEDS: DOCUSATE SODIUM 100MG CAPSULE PO SCH (21:44)
[2021-12-19] MEDS: LACTULOSE 20G/30ML UDC PO SCH (21:45)
[2021-12-20] VITALS: BP 125/69
[2021-12-20 04:00] VITALS: BP 122/71
[2021-12-20] MEDS: LACTULOSE 20G/30ML UDC PO SCH ×3 (06:29→21:10)
[2021-12-20] MEDS: OMEPRAZOLE 20MG CAPSULE EXTENDED RELEASE PO SCH (06:33)
[2021-12-20 07:07] LABS: BASOPHILS % 1.1 % (0.0-2.0); EOSINOPHILS % 2.3 % (0.0-5.0); HEMATOCRIT. 37.2 % (36.0-48.0); LYMPHOCYTES % 33.8 % (20.0-50.0); MEAN CORPUSCULAR HEMOGLOBIN 29.5 pg (28.0-32.0); MEAN CORPUSCULAR VOLUME 91.4 fL (81.0-99.0); MEAN PLATELET VOLUME 7.7 fl (7.4-10.4); MONOCYTES % 14.8 % (2.0-8.0); PLATELET 207 x1000/uL (130-400); RED BLOOD CELL COUNT 4.08 mill/uL (4.2-5.4); RED CELL DISTRIBUTION WIDTH 15.3 % (11.6-14.6)
[2021-12-20 08:00] VITALS: BP 129/62
[2021-12-20 08:52] LABS: CHLORIDE 105 mEq/L (98-107)
[2021-12-20] MEDS: DOCUSATE SODIUM 100MG CAPSULE PO SCH ×2 (09:05→17:11)
[2021-12-20 09:09] LABS: HDL CHOLESTEROL 58 mg/dL (40-59); LDL CHOLESTEROL 134 mg/dL (5-100); PHOSPHORUS 3.6 mg/dL (2.5-4.9)
[2021-12-20] MEDS: MORPHINE SULFATE 2 MG/ML CPJ (NOT FOR IM USE) IV PRN ×2 (09:29→20:05)
[2021-12-20 12:00] VITALS: BP 122/62
[2021-12-20] MEDS: HYDROCODONE/ACETAMINOPHEN 5/325MG TABLET PO PRN (14:24)
[2021-12-20] MEDS ORDERED: LORAZEPAM 2MG/ML CPJ IV NR (14:45)
[2021-12-20] MEDS: SODIUM CHLORIDE 0.9% 1,000 ML IV SCH (14:55)
[2021-12-20] MEDS ORDERED: GADOTERATE MEGLUMINE 5 MMOL/10 ML VIAL IV ONE (15:41)
[2021-12-20 16:00] VITALS: BP 106/68
[2021-12-20 20:00] VITALS: BP 130/70
[2021-12-21] VITALS: BP 156/71
[2021-12-21 04:00] VITALS: BP 143/62
[2021-12-21] MEDS: LACTULOSE 20G/30ML UDC PO SCH ×3 (06:25→21:35)
[2021-12-21] MEDS: OMEPRAZOLE 20MG CAPSULE EXTENDED RELEASE PO SCH (06:25)
[2021-12-21 07:52] LABS: CHLORIDE 108 mEq/L (98-107)
[2021-12-21 08:00] VITALS: BP 135/58
[2021-12-21 08:14] LABS: BASOPHILS % 1.1 % (0.0-2.0); EOSINOPHILS % 3.3 % (0.0-5.0); HEMATOCRIT. 37.5 % (36.0-48.0); HEMOGLOBIN. 12.4 g/dL (12.0-16.0); LYMPHOCYTES % 30.4 % (20.0-50.0); MEAN CORPUSCULAR VOLUME 90.5 fL (81.0-99.0); MEAN PLATELET VOLUME 7.6 fl (7.4-10.4); MONOCYTES % 11.7 % (2.0-8.0); NEUTROPHILS % 53.5 % (40.0-76.0); PLATELET 218 x1000/uL (130-400); RED BLOOD CELL COUNT 4.14 mill/uL (4.2-5.4); RED CELL DISTRIBUTION WIDTH 15.3 % (11.6-14.6)
[2021-12-21] MEDS: DOCUSATE SODIUM 100MG CAPSULE PO SCH ×2 (09:27→17:00)
[2021-12-21] MEDS: MORPHINE SULFATE 2 MG/ML CPJ (NOT FOR IM USE) IV PRN ×2 (09:28→19:58)
[2021-12-21] MEDS: SODIUM CHLORIDE 0.9% 1,000 ML IV SCH (11:48)
[2021-12-21] MEDS: HYDROCODONE/ACETAMINOPHEN 5/325MG TABLET PO PRN (11:51)
[2021-12-21 12:00] VITALS: BP 125/61
[2021-12-21 20:00] VITALS: BP 128/57
[2021-12-21] MEDS: GABAPENTIN 100MG CAPSULE PO SCH (21:35)
[2021-12-21 22:31] LABS: CLARITY URINE CLEAR (CLEAR); COLOR URINE YELLOW (YELLOW); KETONES URINE NEGATIVE (NEGATIVE); LEUKOCYTE ESTERASE URINE NEGATIVE (NEGATIVE); NITRITE URINE NEGATIVE (NEGATIVE); OCCULT BLOOD URINE NEGATIVE (NEGATIVE); PROTEIN URINE NEGATIVE (NEGATIVE); SPECIFIC GRAVITY URINE 1.007 (1.005-1.030); UROBILINOGEN URINE 0.2 E.U./dL (0.2-1.0)
[2021-12-22] VITALS: BP 134/58
[2021-12-22] MEDS: LACTULOSE 20G/30ML UDC PO SCH ×3 (05:46→20:07)
[2021-12-22] MEDS: GABAPENTIN 100MG CAPSULE PO SCH ×3 (05:48→20:07)
[2021-12-22] MEDS: SODIUM CHLORIDE 0.9% 1,000 ML IV SCH (05:56)
[2021-12-22 08:00] VITALS: BP 156/88
[2021-12-22 08:13] LABS: A/G RATIO 0.8 (0.7-1.7); ALBUMIN 2.8 g/dL (2.9-4.4); ALPHA-1-GLOBULIN 0.3 g/dL (0.0-0.4); ALPHA-2-GLOBULIN 0.8 g/dL (0.4-1.0); BETA GLOBULIN 1.1 g/dL (0.7-1.3); GAMMA GLOBULINS 1.4 g/dL (0.4-1.8); GLOBULIN TOTAL 3.7 g/dL (2.2-3.9); M-SPIKE 0.7 g/dL (Not Observed); TOTAL PROTEIN SERUM 6.5 g/dL (6.0-8.5)
[2021-12-22] MEDS: OMEPRAZOLE 20MG CAPSULE EXTENDED RELEASE PO SCH (09:51)
[2021-12-22] MEDS: DOCUSATE SODIUM 100MG CAPSULE PO SCH ×2 (09:51→17:18)
[2021-12-22 12:00] VITALS: BP 153/65
[2021-12-22] MEDS: MORPHINE SULFATE 2 MG/ML CPJ (NOT FOR IM USE) IV PRN (14:35)
[2021-12-22 16:00] VITALS: BP 111/53
[2021-12-22] MEDS: LIDOCAINE 5% PATCH TOP SCH (17:18)
[2021-12-22 18:05] LABS: PROTHROMBIN TIME 10.4 sec (9.6-11.0)
[2021-12-22 20:00] VITALS: BP 141/66
[2021-12-23] VITALS: BP 134/69
[2021-12-23] MEDS: SODIUM CHLORIDE 0.9% 1,000 ML IV SCH (02:30)
[2021-12-23] MEDS: LACTULOSE 20G/30ML UDC PO SCH ×3 (05:48→21:11)
[2021-12-23] MEDS: GABAPENTIN 100MG CAPSULE PO SCH ×3 (05:48→21:11)
[2021-12-23 08:00] VITALS: BP 152/75
[2021-12-23] MEDS: LIDOCAINE 5% PATCH TOP SCH (09:11)
[2021-12-23] MEDS: DOCUSATE SODIUM 100MG CAPSULE PO SCH ×2 (09:11→18:17)
[2021-12-23] MEDS: OMEPRAZOLE 20MG CAPSULE EXTENDED RELEASE PO SCH (09:11)
[2021-12-23 12:00] VITALS: BP 142/47
[2021-12-23 16:00] VITALS: BP 133/64
[2021-12-23 20:00] VITALS: BP 138/60
[2021-12-24] VITALS: BP 134/71
[2021-12-24 04:00] VITALS: BP 152/82
[2021-12-24] MEDS: GABAPENTIN 100MG CAPSULE PO SCH ×3 (05:26→21:23)
[2021-12-24] MEDS: LACTULOSE 20G/30ML UDC PO SCH ×3 (05:26→21:22)
[2021-12-24 08:00] VITALS: BP 133/66
[2021-12-24 08:25] LABS: BASOPHILS % 0.6 % (0.0-2.0); EOSINOPHILS % 1.6 % (0.0-5.0); HEMATOCRIT. 36.5 % (36.0-48.0); LYMPHOCYTES % 24.5 % (20.0-50.0); MEAN CORPUSCULAR HEMOGLOBIN 29.8 pg (28.0-32.0); MEAN PLATELET VOLUME 7.6 fl (7.4-10.4); MONOCYTES % 11.6 % (2.0-8.0); NEUTROPHILS % 61.7 % (40.0-76.0); PLATELET 188 x1000/uL (130-400); RED BLOOD CELL COUNT 4.01 mill/uL (4.2-5.4); RED CELL DISTRIBUTION WIDTH 15.2 % (11.6-14.6)
[2021-12-24] MEDS: OMEPRAZOLE 20MG CAPSULE EXTENDED RELEASE PO SCH (09:40)
[2021-12-24] MEDS: DOCUSATE SODIUM 100MG CAPSULE PO SCH ×2 (09:40→18:27)
[2021-12-24] MEDS: LIDOCAINE 5% PATCH TOP SCH (09:41)
[2021-12-24 09:55] LABS: CHLORIDE 107 mEq/L (98-107)
[2021-12-24 12:00] VITALS: BP 117/53
[2021-12-24 13:10] LABS: KAPPA/LAMBDA RATIO 0.34 (0.26-1.65); LAMBDA LT CHAINS FREE SERUM 117.5 mg/L (5.7-26.3)
[2021-12-24 16:00] VITALS: BP 133/66
[2021-12-24 20:00] VITALS: BP 137/77
[2021-12-24] MEDS: MORPHINE SULFATE 2 MG/ML CPJ (NOT FOR IM USE) IV PRN (20:06)
[2021-12-25] VITALS (18 sets, daily range): BP systolic 102–145; BP diastolic 59–78
[2021-12-25] MEDS: OMEPRAZOLE 20MG CAPSULE EXTENDED RELEASE PO SCH (06:35)
[2021-12-25] MEDS: GABAPENTIN 100MG CAPSULE PO SCH ×3 (06:35→22:01)
[2021-12-25] MEDS: LACTULOSE 20G/30ML UDC PO SCH ×3 (06:35→22:07)
[2021-12-25 08:06] LABS: BASOPHILS % 0.9 % (0.0-2.0); EOSINOPHILS % 2.4 % (0.0-5.0); HEMATOCRIT. 36.6 % (36.0-48.0); HEMOGLOBIN. 12.1 g/dL (12.0-16.0); LYMPHOCYTES % 28.9 % (20.0-50.0); MEAN CORPUSCULAR VOLUME 91.1 fL (81.0-99.0); MEAN PLATELET VOLUME 7.6 fl (7.4-10.4); MONOCYTES % 11.5 % (2.0-8.0); NEUTROPHILS % 56.3 % (40.0-76.0); PLATELET 203 x1000/uL (130-400); RED BLOOD CELL COUNT 4.02 mill/uL (4.2-5.4); RED CELL DISTRIBUTION WIDTH 15.5 % (11.6-14.6)
[2021-12-25] MEDS ORDERED: SODIUM BICARBONATE 4% (2.4MEQ) 5ML VIAL IV ONE (09:14)
[2021-12-25] MEDS ORDERED: MIDAZOLAM HCL 2 MG/2 ML VIAL ONE (09:15)
[2021-12-25] MEDS ORDERED: FENTANYL CITRATE/PF 50MCG/ML 2ML VIAL ONE (09:15)
[2021-12-25] MEDS ORDERED: LIDOCAINE HCL/PF 1% 10 MG/ML 5ML VIAL ONE (09:15)
[2021-12-25 10:59] LABS: CHLORIDE 108 mEq/L (98-107)
[2021-12-25] MEDS ORDERED: FENTANYL CITRATE/PF 50MCG/ML 2ML VIAL IV ONE (11:30)
[2021-12-25] MEDS ORDERED: MIDAZOLAM HCL 5 MG/5 ML VIAL IV ONE (11:30)
[2021-12-25] MEDS ORDERED: MIDAZOLAM HCL 2 MG/2 ML VIAL IV ONE (12:00)
[2021-12-25] MEDS: LIDOCAINE 5% PATCH TOP SCH (12:40)
[2021-12-25] MEDS: DOCUSATE SODIUM 100MG CAPSULE PO SCH ×2 (12:43→16:22)
[2021-12-25] MEDS: HYDROCODONE/ACETAMINOPHEN 5/325MG TABLET PO PRN (13:55)
[2021-12-25] MEDS: MORPHINE SULFATE 2 MG/ML CPJ (NOT FOR IM USE) IV PRN (16:22)
[2021-12-26] VITALS: BP 129/64
[2021-12-26 04:00] VITALS: BP 125/60
[2021-12-26] MEDS: LACTULOSE 20G/30ML UDC PO SCH ×3 (05:07→21:04)
[2021-12-26] MEDS: GABAPENTIN 100MG CAPSULE PO SCH ×3 (05:07→21:04)
[2021-12-26 07:59] LABS: BASOPHILS % 0.7 % (0.0-2.0); EOSINOPHILS % 1.9 % (0.0-5.0); HEMATOCRIT. 36.1 % (36.0-48.0); HEMOGLOBIN. 11.9 g/dL (12.0-16.0); LYMPHOCYTES % 24.5 % (20.0-50.0); MEAN PLATELET VOLUME 7.5 fl (7.4-10.4); MONOCYTES % 12.5 % (2.0-8.0); NEUTROPHILS % 60.4 % (40.0-76.0); PLATELET 219 x1000/uL (130-400); RED BLOOD CELL COUNT 3.97 mill/uL (4.2-5.4); RED CELL DISTRIBUTION WIDTH 15.2 % (11.6-14.6)
[2021-12-26 08:00] VITALS: BP 130/63
[2021-12-26] MEDS: LIDOCAINE 5% PATCH TOP SCH (09:24)
[2021-12-26] MEDS: DOCUSATE SODIUM 100MG CAPSULE PO SCH ×2 (09:25→16:44)
[2021-12-26 11:37] LABS: CHLORIDE 105 mEq/L (98-107)
[2021-12-26 12:00] VITALS: BP 139/65
[2021-12-26 16:00] VITALS: BP 139/65
[2021-12-26 20:00] VITALS: BP 127/54
[2021-12-27] VITALS: BP 114/59
[2021-12-27] MEDS: MORPHINE SULFATE 2 MG/ML CPJ (NOT FOR IM USE) IV PRN ×2 (00:13→18:27)
[2021-12-27 04:00] VITALS: BP 132/69
[2021-12-27] MEDS: GABAPENTIN 100MG CAPSULE PO SCH ×3 (05:59→21:45)
[2021-12-27] MEDS: LACTULOSE 20G/30ML UDC PO SCH ×3 (05:59→21:21)
[2021-12-27 08:00] VITALS: BP 121/68
[2021-12-27] MEDS: DOCUSATE SODIUM 100MG CAPSULE PO SCH ×2 (09:00→15:33)
[2021-12-27] MEDS: LIDOCAINE 5% PATCH TOP SCH (09:46)
[2021-12-27 12:00] VITALS: BP 130/67
[2021-12-27] MEDS ORDERED: HYDROCODONE/ACETAMINOPHEN 10/325MG TABLET PO PRN (13:15)
[2021-12-27] MEDS: ACETAMINOPHEN 325MG TABLET PO PRN ×2 (13:50→18:23)
[2021-12-27 16:00] VITALS: BP 105/56
[2021-12-28] VITALS: BP 135/68
[2021-12-28 04:00] VITALS: BP 146/69
[2021-12-28] MEDS: LACTULOSE 20G/30ML UDC PO SCH ×3 (05:37→21:28)
[2021-12-28] MEDS: GABAPENTIN 100MG CAPSULE PO SCH ×4 (05:37→21:28)
[2021-12-28] MEDS: DOCUSATE SODIUM 100MG CAPSULE PO SCH ×2 (09:31→16:19)
[2021-12-28] MEDS: LIDOCAINE 5% PATCH TOP SCH (09:33)
[2021-12-28 12:00] VITALS: BP 146/59
[2021-12-28 16:00] VITALS: BP 122/72
[2021-12-28 20:00] VITALS: BP 114/63
[2021-12-29] VITALS: BP 120/66
[2021-12-29] MEDS: MORPHINE SULFATE 2 MG/ML CPJ (NOT FOR IM USE) IV PRN ×3 (01:18→18:22)
[2021-12-29 04:00] VITALS: BP 122/68
[2021-12-29] MEDS: GABAPENTIN 100MG CAPSULE PO SCH ×3 (05:55→21:50)
[2021-12-29] MEDS: LACTULOSE 20G/30ML UDC PO SCH ×3 (05:55→21:50)
[2021-12-29 08:00] VITALS: BP 122/80
[2021-12-29] MEDS: LIDOCAINE 5% PATCH TOP SCH (09:00)
[2021-12-29] MEDS: DOCUSATE SODIUM 100MG CAPSULE PO SCH ×2 (09:00→17:11)
[2021-12-29 12:00] VITALS: BP 124/62
[2021-12-29 16:00] VITALS: BP 124/73
[2021-12-29 20:00] VITALS: BP 121/68
[2021-12-30] VITALS: BP 120/63
[2021-12-30 04:00] VITALS: BP 100/55
[2021-12-30] MEDS: LACTULOSE 20G/30ML UDC PO SCH ×3 (06:50→21:22)
[2021-12-30] MEDS: GABAPENTIN 100MG CAPSULE PO SCH ×3 (06:50→21:22)
[2021-12-30 08:00] VITALS: BP 104/62
[2021-12-30] MEDS: DOCUSATE SODIUM 100MG CAPSULE PO SCH ×2 (09:25→17:53)
[2021-12-30] MEDS: LIDOCAINE 5% PATCH TOP SCH (09:26)
[2021-12-30 12:00] VITALS: BP 114/65
[2021-12-30 16:00] VITALS: BP 119/65
[2021-12-30 20:00] VITALS: BP 109/67
[2021-12-31] VITALS: BP 109/67
[2021-12-31 04:00] VITALS: BP 112/65
[2021-12-31] MEDS: GABAPENTIN 100MG CAPSULE PO SCH ×3 (05:59→21:46)
[2021-12-31] MEDS: LACTULOSE 20G/30ML UDC PO SCH ×3 (05:59→21:45)
[2021-12-31 07:47] VITALS: BP 129/69
[2021-12-31] MEDS: DOCUSATE SODIUM 100MG CAPSULE PO SCH ×2 (08:30→17:59)
[2021-12-31] MEDS: LIDOCAINE 5% PATCH TOP SCH (08:31)
[2021-12-31 12:00] VITALS: BP 114/70
[2021-12-31 16:00] VITALS: BP 112/67
[2021-12-31 20:00] VITALS: BP 115/63
[2022-01-01] VITALS: BP 110/60
[2022-01-01 04:00] VITALS: BP 123/68
[2022-01-01] MEDS: GABAPENTIN 100MG CAPSULE PO SCH ×3 (06:29→21:33)
[2022-01-01] MEDS: LACTULOSE 20G/30ML UDC PO SCH ×3 (06:29→21:33)
[2022-01-01 08:00] VITALS: BP 101/60
[2022-01-01] MEDS: DOCUSATE SODIUM 100MG CAPSULE PO SCH ×2 (09:21→18:00)
[2022-01-01] MEDS: LIDOCAINE 5% PATCH TOP SCH (09:55)
[2022-01-01 12:00] VITALS: BP 119/68
[2022-01-01] MEDS: ACETAMINOPHEN 325MG TABLET PO PRN (13:53)
[2022-01-01 16:00] VITALS: BP 107/68
[2022-01-01 20:00] VITALS: BP 127/76
[2022-01-02] VITALS: BP 128/70
[2022-01-02 04:00] VITALS: BP 129/73
[2022-01-02] MEDS: GABAPENTIN 100MG CAPSULE PO SCH ×3 (05:31→21:06)
[2022-01-02] MEDS: LACTULOSE 20G/30ML UDC PO SCH ×3 (05:31→21:06)
[2022-01-02 08:00] VITALS: BP 121/76
[2022-01-02] MEDS: DOCUSATE SODIUM 100MG CAPSULE PO SCH ×2 (08:59→17:44)
[2022-01-02] MEDS: LIDOCAINE 5% PATCH TOP SCH (10:02)
[2022-01-02 12:00] VITALS: BP 135/100
[2022-01-02 16:00] VITALS: BP 120/85
[2022-01-02 20:00] VITALS: BP 125/66
[2022-01-03] VITALS: BP 146/65
[2022-01-03 04:00] VITALS: BP 135/80
[2022-01-03] MEDS: LACTULOSE 20G/30ML UDC PO SCH ×3 (05:47→21:56)
[2022-01-03] MEDS: GABAPENTIN 100MG CAPSULE PO SCH ×3 (05:47→21:56)
[2022-01-03 08:00] VITALS: BP 147/83
[2022-01-03] MEDS: DOCUSATE SODIUM 100MG CAPSULE PO SCH ×2 (09:05→17:08)
[2022-01-03] MEDS: LIDOCAINE 5% PATCH TOP SCH (09:05)
[2022-01-03 12:00] VITALS: BP 134/75
[2022-01-03 16:00] VITALS: BP 114/79
[2022-01-03 20:00] VITALS: BP 125/68
[2022-01-03] MEDS: ENOXAPARIN 40MG/0.4ML SYR SUBCUT SCH (21:57)
[2022-01-04] VITALS: BP 127/71
[2022-01-04 04:00] VITALS: BP 126/73
[2022-01-04] MEDS: LACTULOSE 20G/30ML UDC PO SCH ×3 (06:22→21:14)
[2022-01-04] MEDS: GABAPENTIN 100MG CAPSULE PO SCH ×3 (06:22→21:15)
[2022-01-04 07:50] LABS: BASOPHILS % 0.5 % (0.0-2.0); EOSINOPHILS % 3.7 % (0.0-5.0); HEMATOCRIT. 40.5 % (36.0-48.0); HEMOGLOBIN. 13.3 g/dL (12.0-16.0); LYMPHOCYTES % 39.7 % (20.0-50.0); MEAN CORPUSCULAR VOLUME 91.1 fL (81.0-99.0); MEAN PLATELET VOLUME 7.8 fl (7.4-10.4); MONOCYTES % 5.8 % (2.0-8.0); NEUTROPHILS % 50.3 % (40.0-76.0); PLATELET 255 x1000/uL (130-400); RED BLOOD CELL COUNT 4.44 mill/uL (4.2-5.4); RED CELL DISTRIBUTION WIDTH 14.7 % (11.6-14.6)
[2022-01-04 08:00] VITALS: BP 105/63
[2022-01-04] MEDS: DOCUSATE SODIUM 100MG CAPSULE PO SCH ×2 (09:23→17:22)
[2022-01-04] MEDS: LIDOCAINE 5% PATCH TOP SCH (09:23)
[2022-01-04 12:00] VITALS: BP 116/66
[2022-01-04 16:00] VITALS: BP 126/70
[2022-01-04] MEDS: GUAIFENESIN-DM 200MG-20MG/10ML UDC PO PRN (17:23)
[2022-01-04 20:00] VITALS: BP 132/66
[2022-01-04] MEDS: ENOXAPARIN 40MG/0.4ML SYR SUBCUT SCH (21:14)
[2022-01-05] VITALS: BP 126/72
[2022-01-05 04:00] VITALS: BP 145/75
[2022-01-05] MEDS: LACTULOSE 20G/30ML UDC PO SCH ×3 (05:35→21:07)
[2022-01-05] MEDS: GABAPENTIN 100MG CAPSULE PO SCH ×3 (05:35→21:07)
[2022-01-05 08:35] VITALS: BP 131/74
[2022-01-05] MEDS: DOCUSATE SODIUM 100MG CAPSULE PO SCH ×2 (09:14→16:58)
[2022-01-05] MEDS: LIDOCAINE 5% PATCH TOP SCH (09:18)
[2022-01-05] MEDS: GUAIFENESIN-DM 200MG-20MG/10ML UDC PO PRN (10:31)
[2022-01-05 12:09] VITALS: BP 132/67
[2022-01-05 16:00] VITALS: BP 140/71
[2022-01-05 20:00] VITALS: BP 138/75
[2022-01-05] MEDS: ENOXAPARIN 40MG/0.4ML SYR SUBCUT SCH (21:07)
[2022-01-06] VITALS: BP 137/77
[2022-01-06] MEDS: GUAIFENESIN-DM 200MG-20MG/10ML UDC PO PRN (00:12)
[2022-01-06 04:00] VITALS: BP 132/75
[2022-01-06] MEDS: GABAPENTIN 100MG CAPSULE PO SCH ×3 (05:43→21:50)
[2022-01-06] MEDS: LACTULOSE 20G/30ML UDC PO SCH ×3 (05:43→21:50)
[2022-01-06 08:00] VITALS: BP 140/75
[2022-01-06] MEDS: DOCUSATE SODIUM 100MG CAPSULE PO SCH ×2 (08:55→17:17)
[2022-01-06] MEDS: LIDOCAINE 5% PATCH TOP SCH (08:56)
[2022-01-06 12:00] VITALS: BP 144/75
[2022-01-06 15:59] VITALS: BP 107/69
[2022-01-06 20:00] VITALS: BP 129/78
[2022-01-06] MEDS: ENOXAPARIN 40MG/0.4ML SYR SUBCUT SCH (21:50)
[2022-01-07] VITALS: BP 114/75
[2022-01-07 04:00] VITALS: BP 111/69
[2022-01-07] MEDS: GABAPENTIN 100MG CAPSULE PO SCH ×3 (06:48→21:50)
[2022-01-07] MEDS: LACTULOSE 20G/30ML UDC PO SCH ×3 (06:48→22:00)
[2022-01-07 08:00] VITALS: BP 90/48
[2022-01-07] MEDS: DOCUSATE SODIUM 100MG CAPSULE PO SCH ×2 (09:55→16:45)
[2022-01-07] MEDS: LIDOCAINE 5% PATCH TOP SCH (10:00)
[2022-01-07 12:00] VITALS: BP 120/68
[2022-01-07] MEDS ORDERED: NA PHOS,M-B/NA PHOS,DI-BA ENEMA 118ML PR ONE (15:30)
[2022-01-07 16:00] VITALS: BP 115/63
[2022-01-07] MEDS: SORBITOL 70% SOLN 30ML PO NR (16:45)
[2022-01-07] MEDS ORDERED: NA PHOS,M-B/NA PHOS,DI-BA ENEMA 118ML PR NR (16:45)
[2022-01-07 20:00] VITALS: BP 114/67
[2022-01-07] MEDS: ENOXAPARIN 40MG/0.4ML SYR SUBCUT SCH (21:50)
[2022-01-08] VITALS: BP 122/66
[2022-01-08 04:00] VITALS: BP 116/66
[2022-01-08] MEDS: LACTULOSE 20G/30ML UDC PO SCH ×3 (06:00→22:18)
[2022-01-08] MEDS: GABAPENTIN 100MG CAPSULE PO SCH ×3 (06:03→22:18)
[2022-01-08 08:00] VITALS: BP 111/63
[2022-01-08] MEDS: DOCUSATE SODIUM 100MG CAPSULE PO SCH ×2 (08:40→16:25)
[2022-01-08] MEDS: LIDOCAINE 5% PATCH TOP SCH (08:40)
[2022-01-08 12:00] VITALS: BP 123/64
[2022-01-08 16:00] VITALS: BP 110/61
[2022-01-08] MEDS: SORBITOL 70% SOLN 30ML PO NR (16:25)
[2022-01-08 20:00] VITALS: BP 113/68
[2022-01-08] MEDS: ENOXAPARIN 40MG/0.4ML SYR SUBCUT SCH (22:19)
[2022-01-09] VITALS: BP 93/51
[2022-01-09 04:00] VITALS: BP 107/62
[2022-01-09] MEDS: LACTULOSE 20G/30ML UDC PO SCH ×2 (06:39→14:00)
[2022-01-09] MEDS: GABAPENTIN 100MG CAPSULE PO SCH ×2 (06:39→14:08)
[2022-01-09 08:00] VITALS: BP 126/72
[2022-01-09] MEDS: LIDOCAINE 5% PATCH TOP SCH (09:36)
[2022-01-09] MEDS: DOCUSATE SODIUM 100MG CAPSULE PO SCH (09:36)
[2022-01-09 10:40] LABS: BASOPHILS % 0.6 % (0.0-2.0); EOSINOPHILS % 1.8 % (0.0-5.0); HEMATOCRIT. 37.4 % (36.0-48.0); HEMOGLOBIN. 12.4 g/dL (12.0-16.0); LYMPHOCYTES % 26.9 % (20.0-50.0); MEAN CORPUSCULAR VOLUME 90.7 fL (81.0-99.0); MEAN PLATELET VOLUME 7.4 fl (7.4-10.4); MONOCYTES % 9.3 % (2.0-8.0); NEUTROPHILS % 61.4 % (40.0-76.0); PLATELET 261 x1000/uL (130-400); RED BLOOD CELL COUNT 4.13 mill/uL (4.2-5.4); RED CELL DISTRIBUTION WIDTH 14.9 % (11.6-14.6)
[2022-01-09 10:54] VITALS: BP 126/72
[2022-01-09 11:20] LABS: CHLORIDE 108 mEq/L (98-107)
[2022-01-09 12:00] VITALS: BP 127/73
[2022-01-11 16:00] VITALS: BP 133/94
== END 2022-01-09 15:55 | disposition home or self-care (01) | DRG 477 ==
LOC: ER 10:31 → EDBD 16:08 → 6EST 16:08 → EDBEDREQ 16:25 → EDBEDREQTM 16:25 → ENRESERV 16:36 → 6EST 17:32 → 7EST 12-28 03:59
PROVIDERS: ADMIT Internal Medicine Nephrology; ATTEND Internal Medicine Nephrology
PROC: 0QB13ZX Excision of Sacrum, Percutaneous Approach, Diagnostic (ICD-10-PCS; principal; 2021-12-25)
DX: M84.454A Pathological fracture, pelvis, initial encounter for fracture (principal); U07.1 COVID-19; N17.9 Acute kidney failure, unspecified; I31.39 Other pericardial effusion (noninflammatory); C90.00 Multiple myeloma not having achieved remission; I95.9 Hypotension, unspecified; K57.90 Diverticulosis of intestine, part unspecified, without perforation or abscess without bleeding; K44.9 Diaphragmatic hernia without obstruction or gangrene; I95.89 Other hypotension; M16.11 Unilateral primary osteoarthritis, right hip; K80.20 Calculus of gallbladder without cholecystitis without obstruction; E78.5 Hyperlipidemia, unspecified; J44.9 Chronic obstructive pulmonary disease, unspecified; K21.9 Gastro-esophageal reflux disease without esophagitis; N18.9 Chronic kidney disease, unspecified; G90.8 Other disorders of autonomic nervous system; I34.0 Nonrheumatic mitral (valve) insufficiency; I07.1 Rheumatic tricuspid insufficiency; R26.9 Unspecified abnormalities of gait and mobility; I25.10 Atherosclerotic heart disease of native coronary artery without angina pectoris; K59.00 Constipation, unspecified; D63.8 Anemia in other chronic diseases classified elsewhere; I12.9 Hypertensive chronic kidney disease with stage 1 through stage 4 chronic kidney disease, or unspecified chronic kidney disease; K64.9 Unspecified hemorrhoids; Z88.8 Allergy status to other drugs, medicaments and biological substances; I25.2 Old myocardial infarction; Z87.891 Personal history of nicotine dependence; Z79.899 Other long term (current) drug therapy; Z79.82 Long term (current) use of aspirin; Z82.49 Family history of ischemic heart disease and other diseases of the circulatory system; Z98.1 Arthrodesis status; W19.XXXA Unspecified fall, initial encounter; Y93.89 Activity, other specified; Y92.89 Other specified places as the place of occurrence of the external cause; Y99.8 Other external cause status
CPT/HCPCS: 20206; 36415; 71045; 72197; 73560; 74176; 77012; 80048; 80053; 80061; 80076; 81003; 82105; 82378; 82784; 83735; 83880; 83883; 83970; 84100; 84155; 84165; 84439; 84443; 84484; 85025; 86334; 87426; 87804; 88304; 93005; 93306; 93880; 93970; 97110; 97161; 97164; 97166; 97530; 97535; 99152; 99153; 99285; A6261; A9577; C1893; C9803; J1650; J1885; J2060; J2250; J2270; J2405; J3010; J3490; J7030; G0500